=== PATIENT | female | born 1945 | race Caucasian/White ===

== ENCOUNTER → 2017-11-29 13:17 | Outpatient (CLI) | payer MEDICARE, SELFPAY ==
--- NOTE | 2017-11-29 13:28 | HPBI_ITS ---
MAMMOGRAPHY - UNILATERAL SCREENING: LEFT BREAST REASON FOR EXAM: Female, 72 years old. Routine annual screening examination (unilateral). PERTINENT HISTORY: Personal history of breast cancer. Prior right mastectomy and chemotherapy. TECHNIQUE: Digital unilateral breast cecy (3D mammographic acquisition) in the CC and MLO projections. 2-D mediolateral oblique (MLO) and craniocaudad (CC) views of both breasts were obtained. CAD: Full Field Digital Mammography with Computer Added Detection was performed. COMPARISON: Comparison is made with prior examination dated August 03, 2012. FINDINGS: Breast Composition: The breasts are almost entirely fatty. There are no dominant masses or suspicious calcifications. No other significant abnormalities are identified. There has been no significant change since the prior study. [facility] SCRN W/CAD IMPRESSION: Stable unilateral screening mammogram. Yearly follow-up mammogram recommended. (A) ASSESSMENT CATEGORY: BIRADS Category 1: Negative. A letter regarding these results will be sent to the patient by the facility within 30 days. Approximately 10% of breast cancers are not detected by mammography. A normal mammogram should not delay biopsy of a clinically suspicious abnormality. [id number] Electronically Signed: Compa Cherry MD at 15:10 EST Tel [phone], Service support ,
== END ==
PROVIDERS: Family Provider Internal Medicine; PCP Internal Medicine; Visit Provider Internal Medicine
DX: Z12.31 Encounter for screening mammogram for malignant neoplasm of breast (principal)
CPT/HCPCS: 77061; 77063; 77067; G0279

== ENCOUNTER → 2017-12-07 09:38 | Outpatient (CLI) | payer MEDICARE, SELFPAY ==
--- NOTE | 2017-12-07 09:39 | HPBD_ITS ---
STUDY: DUAL ENERGY X-RAY ABSORPTIOMETRY / DXA REASON FOR EXAM: Female, 72 years old. The patient is postmenopausal. Loss of height. History of breast cancer. TECHNIQUE: Bone Mineral Density (BMD) measurements of lumbar spine and bilateral hips were obtained. COMPARISON: Comparison is made with prior study dated August 03, 2012. FINDINGS: Lumbar Spine (L1-L4): g/cm2 (1.142) / T-score (-0.3) / Z-score (1.4) Findings are suggestive of normal bone density with a low fracture risk. Left Femur Total: g/cm2 (0.818) / T-score (-1.5) / Z-score (0.0) Left Femoral Neck: g/cm2 (0.704) / T-score (-2.4) / Z-score (-0.6) Right Femur Total: g/cm2 (0.885) / T-score (-1.0) / Z-score (0.6) Right Femoral Neck: g/cm2 (0.702) / T-score (-2.4) / Z-score (-0.7) The T-Scores on the most recent prior examination were: Lumbar Spine (L1-L4): There has been worsening of bone density since the previous examination. Left Femur Total: which represents a worsening of 1.1%. Right Femur Total: which represents a worsening of 1.8%. HPBD/Dexa Bone Density Study (HP) IMPRESSION: The patient is considered osteopenic as outlined below according to World Arturo Organization (WHO) criteria with a moderate fracture risk. There has been worsening of bone density since the previous examination. Reference Information: The T-score is the number of standard deviations above or below the standard which is normal for young adults at their peak bone mineral density. The World Health Organization (WHO) interprets the T-scores as follows: Above -1 Normal bone density Between -1 and -2.5 Osteopenia Equal to / or below -2.5 Osteoporosis As a practical clinical guideline, osteopenia may be graded as follows: Mild -1 through -1.5 Moderate -1.6 through -2.0 Severe -2.1 through -2.4 The Z-score is the number of standard deviations above or below age-matched controls. A Z-score of less than -1.5 would be considered abnormal. References: 1. NIH Osteoporosis and Related Bone Diseases http://www.osteo.org 2. International Society for Clinical Densitometry http://www.iscd.org 3. National Osteoporosis Foundation http://www.nof.org Electronically Signed: Compa Cherry MD at 11:19 EST Tel [phone], Service support ,
== END ==
PROVIDERS: Family Provider Internal Medicine; PCP Internal Medicine; Visit Provider Internal Medicine
DX: Z78.0 Asymptomatic menopausal state (principal)
CPT/HCPCS: 77080

== ENCOUNTER → 2019-10-01 16:26 | Outpatient (CLI) | payer MEDICARE, SELFPAY ==
[2018-11-21 10:13] VITALS: BMI 36.9
[2019-10-01 16:33] LABS: Mucous, Urine 0 SEEN /hpf (<or=2+); Red Blood Cells-Urine 0 SEEN /hpf (0-5); Squamous Epithelial Cells - UA 0 SEEN /hpf (5-10); White Blood Cells 0 SEEN /hpf (0-5)
[2019-10-01 16:48] LABS: Color, Urine Straw (Yellow); Glucose, Dipstick Normal (Normal); Ketone-Dipstick Negative (Negative); Leukocyte Esterase-Dipstick Negative /ul (Negative); Nitrite-Dipstick Negative (Negative); Occult Blood-Urine Negative /ul (Negative); Protein-Dipstick Negative (Negative); Urine Bilirubin Dipstick Negative (Negative); Urine Clarity Clear (Clear); Urine Urobilinogen Normal (Normal); Urine pH 6.5 (5.0 - 8.0)
[2019-10-01 16:54] LABS: Absolute Lymphocyte Count 1.99 X10^3/uL (0.83-4.51); Basophil# 0.02 X10^3/uL; Basophil% 0.4 % (0-1); Eosinophil# 0.18 X10^3/uL; Eosinophils% 3.2 % (0-5); Hematocrit 32.8 % (37-47); Lymphocyte # 1.99 X10^3/ul (4.0); Lymphocyte % 35.3 % (19-41); Mean Corp Hgb Conc 33.5 g/dL (32-36); Mean Corpuscular Hgb 32.4 pg (27.0-32.0); Mean Corpuscular Volume 96.5 fL (81-99); Monocyte# 0.45 X10^3/uL; NRBC Flagged by Analyzer 0 % (0-5); Neutrophil # 2.97 X10^3/uL (2.7-7.7); Neutrophil % 52.7 % (47-70); Platelet Count 161 K/mm3 (150-450); RBC Distribution Width CV 13.2 % (11.6-14.6); RBC Distribution Width SD 47.3 fl (35.1-43.9); White Blood Count 5.6 K/mm3 (4.4-11.0)
[2019-10-01 16:58] LABS: Bacteria RARE /hpf (None Seen)
[2019-10-01 17:03] LABS: ALB/GLOB Ratio 1.3 RATIO (0.9-2.4); AST(SGOT) 22 U/L (15-37); Alanine Aminotransfer ALT/SGPT 31 U/L (13-56); Albumin, Serum 3.8 g/dL (3.2-5.0); Alkaline Phosphatase 91 U/L (45-117); Anion Gap 8 (5-15); BUN 50 mg/dL (7-18); BUN/Creat Ratio 33.6 RATIO (10-20); Calcium,Total 9.2 mg/dL (8.5-10.1); Chloride 102 mmol/L (98-107); Creatinine, Serum 1.49 mg/dL (0.55-1.02); EST Glomerular Filtration Rate 36 mL/min (>60); Est Glom Filt Rate - Afr Amer 44 mL/min (>60); Globulin 2.9 g/dL (2.2-4.2); Glucose 87 mg/dL (74-106); Potassium 4.9 mmol/L (3.5-5.1); Protein, Total 6.7 g/dL (6.4-8.2); Sodium Level 137 mmol/L (136-145); Thyroid Stim Hormone (TSH) 3.46 uIU/mL (0.358-3.74)
[2019-10-01 17:15] LABS: Creatinine, Urine (random) < 13.00 mg/dL (NO RANGE EST.); Microalbumin,Random Urine < 5.0 mg/L (NO RANGE EST.)
[2019-10-02 10:07] LABS: Vitamin D,25 Hydroxy 60.1 ng/mL (29.95-100.01)
[2019-10-03 16:32] LABS: CHOLESTEROL TOTAL 131 mg/dL (100-199); HDL-C 46 mg/dL (>39); SMALL LDL-P 267 nmol/L (<=527); TRIGLYCERIDES 189 mg/dL (0-149)
[2019-10-03 20:37] LABS: LDL-C 47 mg/dL (0-99); LDL-P 535 nmol/L (<1000)
[2019-10-03 20:38] LABS: INSULIN RESISTANCE SCORE 59 (<=45); LDL SIZE 20.8 nm (>20.5)
== END ==
PROVIDERS: Family Provider Internal Medicine; PCP Internal Medicine; Referring Provider Internal Medicine; Visit Provider Internal Medicine
DX: E78.00 Pure hypercholesterolemia, unspecified (principal); E55.9 Vitamin D deficiency, unspecified; E11.43 Type 2 diabetes mellitus with diabetic autonomic (poly)neuropathy
CPT/HCPCS: 80053; 80061; 81001; 82043; 82306; 82570; 83704; 84443; 85025

== ENCOUNTER 2020-01-23 20:49 | Observation (INO) | payer MEDICARE, MEDICAID, SELFPAY ==
[2019-11-19 10:31] VITALS: BMI 33.8
[2020-01-23 20:51] VITALS: BP 161/73; PULSE 76; RESP 16; TEMP 36.7; O2SAT 100; BMI 34.9
--- NOTE | 2020-01-23 21:13 | ED.VISSUMM ---
- ER Visit Summary Date of Service: 01/23/20 Chief Complaint: Confusion History of Present Illness: The patient is a 74 F who presents with episode of confusion that was noticed today. Patient lives in assisted living and the nurse at the assisted living stated that the patient was not focusing well. Patient states that when her blood sugar drops below 120 she does not start acting confused. Patient's blood sugar was 89. Patient is feeling better at the present time. Patient denies any chest pain or shortness of breath. Patient denies any nausea or vomiting. Patient admits to subjective chills but denies any fevers. Physical Examination: Vital signs are stable. Patient is afebrile. Patient is in no acute distress. Oral mucosa is pink and moist. Neck is supple. Trachea is midline. There is no JVD noted. Heart was regular rate and rhythm. Lungs are clear and equal bilaterally. Abdomen is soft. Bowel sounds are normal. There is no tenderness. There is no rebound or guarding noted. Skin is warm dry. Cranial nerves II through XII are intact. There are no focal motor or sensory deficits noted. Extremities are intact. There is no edema. Test Results: CBC was within normal limits. Basic metabolic profile showed glucose of 64. Creatinine was 2.11 and BUN was 64. These were increased from previous results. Urinalysis does not show any evidence of urinary tract infection. Portable chest x-ray was obtained. There is no acute cardiopulmonary process. This was interpreted by the radiologist and reviewed by myself. Emergency Department Course and Treatment: Patient was given IV fluids here. Repeat BGT was obtained and was 30. Patient was given amp of D50. Patient was feeling better after this. Patient is agreeable to be admitted overnight for observation. Case was discussed with the hospitalist, Dr. Narayan. He will admit the patient to his service. Patient understood and was agreeable with the plan. All questions were answered. Disposition: Admit to hospital Impression: 1. Dehydration 2. Hypoglycemia This note was generated with [employer] software. It may contain incorrect words, spelling, and punctuation that were not noted in review of the chart prior to signing ED Disposition - Plan for ED Patient: Disposition: Acute Care [facility] Diagnosis: Dehydration, Hypoglycemia
--- NOTE | 2020-01-23 21:15 | RAD_ITS ---
HISTORY: CHILLS EXAM: XR Chest 1 View: COMPARISON: August 03, 2016 chest x-ray. A chest CT is available from August 04, 2016. FINDINGS: # of images incl. paperwork: 1 Lungs are clear. Heart is not enlarged. Thoracic spondylosis with a gentle rightward curvature to the thoracic spine and enthesophytes remains. Pulmonary vascularity is distinct. No effusions. RAD/Chest 1 View (Portable) IMPRESSION: No acute cardiopulmonary disease perceived. at 2153 Reported and signed by: Tyrell Bush MD Electronically Signed: Tyrell Bush MD at 21:52 EDT Tel , Service support ,
[2020-01-23 21:47] LABS: Absolute Neutrophil Count 2.9 X10^3/uL (2.0-7.7); Basophil# 0.02 X10^3/uL; Basophil% 0.3 % (0-1); Eosinophil# 0.21 X10^3/uL; Eosinophils% 3.4 % (0-5); Hematocrit 32.6 % (37-47); Hemoglobin 10.8 g/dL (12.0-15.0); Lymphocyte % 41.9 % (19-41); Mean Corp Hgb Conc 33.1 g/dL (32-36); Mean Corpuscular Volume 99.7 fL (81-99); Mean Platelet Vol. 10.4 fl (6.2-12.0); Monocyte# 0.42 X10^3/uL; Monocyte% 6.8 % (0-10); NRBC Flagged by Analyzer 0 % (0-5); Neutrophil # 2.94 X10^3/uL (2.7-7.7); Neutrophil % 47.3 % (47-70); Platelet Count 123 K/mm3 (150-450); RBC Distribution Width CV 12.1 % (11.6-14.6); RBC Distribution Width SD 43.9 fl (35.1-43.9); Red Blood Count 3.27 M/mm3 (4.2-5.4); White Blood Count 6.2 K/mm3 (4.4-11.0)
[2020-01-23 21:49] LABS: Bacteria 0 SEEN /hpf (None Seen); Mucous, Urine 0 SEEN /hpf (<or=2+); Red Blood Cells-Urine 0 SEEN /hpf (0-5)
[2020-01-23 21:59] LABS: Color, Urine Yellow (Yellow); Glucose, Dipstick Normal (Normal); Ketone-Dipstick Negative (Negative); Leukocyte Esterase-Dipstick 500 /ul (Negative); Nitrite-Dipstick Negative (Negative); Occult Blood-Urine Negative /ul (Negative); Protein-Dipstick Negative (Negative); Urine Bilirubin Dipstick Negative (Negative); Urine Clarity Clear (Clear); Urine Urobilinogen Normal (Normal)
[2020-01-23 22:00] LABS: ALB/GLOB Ratio 1.1 RATIO (0.9-2.4); AST(SGOT) 19 U/L (15-37); Alanine Aminotransfer ALT/SGPT 30 U/L (13-56); Albumin, Serum 3.4 g/dL (3.2-5.0); Alkaline Phosphatase 90 U/L (45-117); Anion Gap 7 (5-15); BUN 64 mg/dL (7-18); BUN/Creat Ratio 30.3 RATIO (10-20); Chloride 111 mmol/L (98-107); Creatinine, Serum 2.11 mg/dL (0.55-1.02); EST Glomerular Filtration Rate 24 mL/min (>60); Est Glom Filt Rate - Afr Amer 30 mL/min (>60); Estimated Creatinine Clearance 19.64 ml/min; Globulin 3.2 g/dL (2.2-4.2); Glucose 61 mg/dL (74-106); Potassium 4.3 mmol/L (3.5-5.1); Protein, Total 6.6 g/dL (6.4-8.2); Sodium Level 144 mmol/L (136-145)
[2020-01-23 22:07] LABS: Squamous Epithelial Cells - UA 0-5 SEEN /hpf (5-10); White Blood Cells 0-5 SEEN /hpf (0-5)
[2020-01-23] MEDS: 0.9% Normal Saline 1,000 ML 999 ML IV (22:55)
[2020-01-23] MEDS: Dextrose 50%-Water 25 GM/50 ML DISP.SYRIN IV (23:01)
--- NOTE | 2020-01-23 23:02 | ED.RN ---
CAME IN TO TAKE BLOOD GLUCOSE TEST, PT LETHARGIC AND SLURRING WORDS. RESULT 30, MD AWARE AND VERBAL ORDER FOR 50% DEXTROSE, 1 AMP. ATTEMPTED TO GIVE MEDICATION VIA LEFT AC, IV INFILTRATED. NEW IV STARTED IN LEFT UPPER ARM. MEDICATION WAS GIVEN AND PT IMMEDIATELY BECAME MORE ALERT AND ORIENTED.
[2020-01-23 23:07] VITALS: BP 125/59; PULSE 79; RESP 16; O2SAT 99
--- NOTE | 2020-01-23 23:13 | PCM.HP.STD ---
Problem List (1) Acute encephalopathy Status: Acute (2) Type 2 diabetes mellitus without complications Status: Chronic (3) Pulmonary emboli Status: Chronic Qualifiers: Pulmonary embolism type: other Chronicity: unspecified Acute cor pulmonale presence: without acute cor pulmonale Qualified Code(s): I26.99 - Other pulmonary embolism without acute cor pulmonale (4) HTN (hypertension) Status: Chronic (5) Acute non-ST elevation myocardial infarction (NSTEMI) Status: Chronic (6) Hx of deep venous thrombosis Status: Chronic (7) History of DVT (deep vein thrombosis) Status: Chronic (8) Chronic kidney disease, stage 3 Status: Chronic (9) History of breast cancer Status: Chronic Comment: Status post right mastectomy and chemotherapy, in remission. (10) transient hypoxia Status: Acute (11) Shortness of breath Status: Inactive (12) Left sided chest pain Status: Inactive (13) Type 2 diabetes mellitus Status: Chronic (14) Hypertension Status: Chronic Qualifiers: Hypertension type: essential hypertension Qualified Code(s): I10 - Essential (primary) hypertension History of Present Illness Date of Admission: 01/23/20 Chief Complaint: Confusion, sent from SNF The patient is a 74 year old F with multiple comorbidities as mentioned above was sent from [facility] for confusion that was noticed on day of admission. As per the nursing staff in assisted living, patient was confused, inattentive, not focused. Her blood sugar was found 89 mg/dL and when her blood sugar drops below 120, she starts acting confused. Denies fever or chills. No cough or shortness of breath. In ED, vital signs are stable. [] Basic labs in ER shows BUN/creatinine 64/2.11, H&H 10.8/32, platelet count 223. The previous BUN/creatinine was 50/1.49 in September 2019. Chest x-ray no acute cardiopulmonary abnormality. Past Medical History Past Medical History (Chronic Problems): Chronic Problems (Last Reviewed 11/19/19 @ 10:51 by JOSEP Norris) Type 2 diabetes mellitus without complications (Chronic) Pulmonary emboli (Chronic) HTN (hypertension) (Chronic) Acute non-ST elevation myocardial infarction (NSTEMI) (Chronic) Hx of deep venous thrombosis (Chronic) History of DVT (deep vein thrombosis) (Chronic) Chronic kidney disease, stage 3 (Chronic) History of breast cancer (Chronic) Status post right mastectomy and chemotherapy, in remission. Type 2 diabetes mellitus (Chronic) Hypertension (Chronic) Medical History: Medical History (Last Reviewed 11/19/19 @ 10:51 by JOSEP Norris) Type 2 diabetes mellitus without complications (Chronic) E11.9 Pulmonary emboli (Chronic) I26.99 HTN (hypertension) (Chronic) I10 Acute non-ST elevation myocardial infarction (NSTEMI) (Chronic) I21.4 Hx of deep venous thrombosis (Chronic) Z86.718 acute chronic kidney diseae stage 3 Allergies acetaminophen [From Darvocet-N] Allergy (Verified 11/19/19 10:31) Rash meperidine HCl [From Demerol] Allergy (Verified 11/19/19 10:31) Rash Penicillins Allergy (Verified 11/19/19 10:31) Rash propoxyphene HCl [From Darvon] Allergy (Verified 11/19/19 10:31) Rash propoxyphene napsylate [From Darvocet-N] Allergy (Verified 11/19/19 10:31) Rash Home Medications: Ambulatory Orders Medication Instructions Recorded Aspirin [Aspirin, Baby] 81 mg PO DAILY@0800 08/03/16 Insulin Detemir [Levemir FlexPen] 20 units SC BREAKFAST 08/03/16 Insulin Detemir [Levemir FlexPen] 20 units SC QHS 08/03/16 Metoprolol(XL)Succ [Toprol Xl 50 mg PO DAILY 08/03/16 (Beta Birdie)] Multivitamin [Daily Multiple 1 ea PO DAILY 08/03/16 Vitamin] Omeprazole [Prilosec] 20 mg PO DAILY 08/03/16 Apixaban [Eliquis] 5 mg PO BID #90 tab 08/05/16 Atorvastatin Calcium [Lipitor] 40 mg PO QHS #30 tab 08/05/16 insulin aspart U-100 100 unit/mL See Rx Instructions SC TIDCM 10/05/17 (3 mL) subcutaneous pen metformin 500 mg tablet 500 mg PO BID 10/08/17 gabapentin 100 mg capsule 300 mg PO TID 30 Days #150 11/10/17 furosemide 20 mg tablet 20 mg PO DAILY 11/21/18 lisinopril 10 mg tablet 10 mg PO DAILY 11/21/18 Cholecalciferol (Vitamin D3) 2,000 unit PO DAILY 01/23/20 [Vitamin D3] Ofloxacin 0.3% [Floxin 0.3% Otic] 1 drp LEFT EYE 4X/DAY 01/23/20 Surgical History: Surgical History (Last Reviewed 11/19/19 @ 10:51 by JOSEP Norris) H/O right mastectomy Z98.890, Z90.11 Surgical History: mastectomy Psychiatric History: No pertinent psych hx HEAT AND FROST INSULATOR History: No pertinent HEAT AND FROST INSULATOR history Smoking Status: Never smoker - *Family History Maternal History Items: No pertinent history Paternal History Items: No pertinent history Review of Systems Constitutional: Denies: Chills, Fever, Weight Change HEENT: Denies: Head Aches, Sinus Congestion, Sinus Drainage Cardiovascular: Denies: Chest Pain, Palpitations Respiratory: Denies: Cough, Shortness of breath at rest, Sputum production Gastrointestinal: Denies: Abdominal Pain, Nausea, Vomiting Genitourinary: Reports: Incontinence - chronic. Denies: Dysuria, Frequency, Urgency Musculoskeletal: Denies: Joint Pain, Joint Tenderness Skin: Denies: Rash, Wounds Neurological: Reports: Balance problems. Denies: Focal weakness, Numbness, Tingling Psychiatric: Denies: Anxiety, Depression, Homicidal Ideations, Suicidal Ideations Hematologic/ Lymphatic: Denies: Easy Bruising, Easy Bleeding VTE Information - Inpt Only VTE Present on Admission: No VTE Mechan Device Prophylaxis: None VTE Pharm Prophylaxis ordered?: Yes Patient Problems: Active and Suspected Problems (Last Reviewed 11/19/19 @ 10:51 by JOSEP Norris) Acute encephalopathy (Acute) - Physical Exam Vitals/I&O's: Vital Signs Temp Pulse Resp BP Pulse Ox 98.1 F 79 16 125/59 H 99 01/23/20 20:51 01/23/20 23:07 01/23/20 23:07 01/23/20 23:07 01/23/20 23:07 Oxygen Delivery Method Room Air Weight: 197 lb 5.019 oz Body Mass Index (BMI) 34.9 Finger Stick Blood Glucose 30 General: Oriented x3, Cooperative, Lethargic HEENT: Atraumatic, PERRLA, EOMI, Normocephalic Oral: No Gingival or Mucosal Lesions/ Ulcerations, Dry Mucosa Neck: Supple, No JVD, Negative Carotid Bruits Lungs: Clear to auscultation, Normal air movement, No rhonchi, No wheeze, No rales Cardiovascular: Regular rate, Regular Rhythm, Normal S1, Normal S2, No murmurs Abdomen: Bowel Sounds Present, Soft, Non Tender, Non-Distended Extremities: No edema, Capillary Refill Less than 3 Seconds Skin: No rashes, No breakdown Musculoskeletal: No Tenderness to Palpation of Joints or Extremities Neurological: Cranial nerves II-XII grossly intact, Deep Tendon Reflexes 2+/4 and Symmetrical, Neuro grossly intact Psych/Mental Status: Normal Affect, Appropriate Laboratory Results 01/23/20 21:35: WBC 6.2, RBC 3.27 L, Hgb 10.8 L, Hct 32.6 L, MCV 99.7 H, MCH 33.0 H, MCHC 33.1, RDW Std Deviation 43.9, RDW Coeff of Joelle 12.1, Plt Count 123 L, MPV 10.4, Immature Gran % (Auto) 0.300, Neut % (Auto) 47.3, Lymph % (Auto) 41.9 H, [place] % (Auto) 6.8, Eos % (Auto) 3.4, Baso % (Auto) 0.3, Absolute Neuts (auto) 2.9, Absolute Lymphs (auto) 2.60, Nucleated RBC % 0 01/23/20 21:35: Sodium 144, Potassium 4.3, Chloride 111 H, Carbon Dioxide 26.0, Anion Gap 7, BUN 64 H, Creatinine 2.11 H, Estim Creat Clear Calc 19.64, Est GFR (MDRD) Af Amer 30 L, Est GFR (MDRD) Non-Af 24 L, BUN/Creatinine Ratio 30.3 H, Glucose 61 L, Calcium 9.0, Total Bilirubin 0.20, AST 19, ALT 30, Alkaline Phosphatase 90, Total Protein 6.6, Albumin 3.4, Globulin 3.2, Albumin/Globulin Ratio 1.1 01/23/20 21:40: Urine Color Yellow, Urine Clarity Clear, Urine pH 5.0, Ur Specific [place] 1.010, Urine Protein Negative, Urine Glucose (UA) Normal, Urine Ketones Negative, Urine Occult Blood Negative, Urine Nitrite Negative, Urine Bilirubin Negative, Urine Urobilinogen Normal, Ur Leukocyte Esterase 500 H, Urine RBC 0 SEEN, Urine WBC 0-5 SEEN, Ur Squamous Epith Cells 0-5 SEEN, Urine Bacteria 0 SEEN, Urine Mucus 0 SEEN Current Medications Sodium Chloride () 1,000 mls @ 1,000 mls/hr IV .Q1H ONE Stop: 01/23/20 23:30 Last Admin: 01/23/20 22:55 Dose: 999 mls/hr Documented by: Assessment/Plan All Active Problems (Last Reviewed 11/19/19 @ 10:51 by JOSEP Norris) Acute encephalopathy (Acute) transient hypoxia (Acute) The patient is a 74 year old F with multiple comorbidities as mentioned above was sent from [facility] for confusion that was noticed on day of admission. As per the nursing staff in assisted living, patient was confused, inattentive, not focused. Accu-Cheks in ER is 30 and in BMP 60 mg deciliter. In ED, vital signs are stable. [] Basic labs in ER shows, H&H 10.8/32, platelet count 223. Chest x-ray no acute cardiopulmonary abnormality. 1. Acute mild encephalopathy probably secondary to hypoglycemia/metabolic encephalopathy: Patient still feels mild groggy/lethargic. Patient is being admitted for observation on MedSurg floor. Treat underlying disorder as mentioned below. 2. Diabetes mellitus type 2 with hypoglycemia: Glucose in BMP 61. Glucose was 30 in Accu-Cheks. Continue IV fluid D5 half NS at 100 mill per hour. Monitor Accu-Cheks every 2 hours until glucose is more than 90 mg and then every 4 hour. Avoid oral hypoglycemic agents and insulin. 3. Acute kidney injury on CKD stage III can lead to dehydration/prerenal: BUN/creatinine 64/2.11. The previous BUN/creatinine was 50/1.49 in September 2019. We fluid as mentioned above. Monitor intake and output, electrolytes and kidney function. 4. Breast cancer status post right mastectomy and chemotherapy: Stable 5. Other comorbidities include PE/DVT, hypertension, chronic degenerative joint disease: Multiple comorbidities complicates the present care and expect difficult and delay recovery Advance directive: Patient has advanced directive in penitentiary note. Patient is DNR CC as per penitentiary paper. When asked directly about different code options including full code, DNR CC arrest and DNR CC, patient wants to keep DNR CC. Patient does not want artificial life support including intubation, tube feed, ventilator and/chest compression. Total time spent in axam-fi-oijc encounter in discussion of advanced directive 16 minutes. Laboratory Results 01/23/20 21:35: WBC 6.2, RBC 3.27 L, Hgb 10.8 L, Hct 32.6 L, MCV 99.7 H, MCH 33.0 H, MCHC 33.1, RDW Std Deviation 43.9, RDW Coeff of Joelle 12.1, Plt Count 123 L, MPV 10.4, Immature Gran % (Auto) 0.300, Neut % (Auto) 47.3, Lymph % (Auto) 41.9 H, [place] % (Auto) 6.8, Eos % (Auto) 3.4, Baso % (Auto) 0.3, Absolute Neuts (auto) 2.9, Absolute Lymphs (auto) 2.60, Nucleated RBC % 0 01/23/20 21:35: Sodium 144, Potassium 4.3, Chloride 111 H, Carbon Dioxide 26.0, Anion Gap 7, BUN 64 H, Creatinine 2.11 H, Estim Creat Clear Calc 19.64, Est GFR (MDRD) Af Amer 30 L, Est GFR (MDRD) Non-Af 24 L, BUN/Creatinine Ratio 30.3 H, Glucose 61 L, Calcium 9.0, Total Bilirubin 0.20, AST 19, ALT 30, Alkaline Phosphatase 90, Total Protein 6.6, Albumin 3.4, Globulin 3.2, Albumin/Globulin Ratio 1.1 01/23/20 21:40: Urine Color Yellow, Urine Clarity Clear, Urine pH 5.0, Ur Specific [place] 1.010, Urine Protein Negative, Urine Glucose (UA) Normal, Urine Ketones Negative, Urine Occult Blood Negative, Urine Nitrite Negative, Urine Bilirubin Negative, Urine Urobilinogen Normal, Ur Leukocyte Esterase 500 H, Urine RBC 0 SEEN, Urine WBC 0-5 SEEN, Ur Squamous Epith Cells 0-5 SEEN, Urine Bacteria 0 SEEN, Urine Mucus 0 SEEN 01/23/20 22:49: POC Glucose 30 L* Clinical Impression(s) from Imaging Studies Chest X-Ray 01/23/20 21:15 IMPRESSION: No acute cardiopulmonary disease perceived. OBSV E&M: [id number] Initial observation care L3 Procedures: [id number] Advncd Care Plan 30 Min
[2020-01-23 23:16] LABS: Bedside Glucose 30 mg/dL (70-110)
[2020-01-23 23:45] LABS: Bedside Glucose 126 mg/dL (70-110)
[2020-01-23 23:59] VITALS: BP 144/62; PULSE 72; RESP 16; TEMP 36.8; O2SAT 97
[2020-01-24] VITALS (7 sets, daily range): BP systolic 91–140; BP diastolic 49–66; PULSE 57–85; RESP 16–18; TEMP 36.4–36.8; O2SAT 97–100; BMI 32.8
[2020-01-24] MEDS: Dextrose 5%/0.9% NaCl 1,000 ML 100 ML IV (01:05)
[2020-01-24 01:41] LABS: Bedside Glucose 96 mg/dL (70-110)
[2020-01-24] MEDS: Gabapentin 300 MG Capsule PO ×3 (05:29→22:02)
[2020-01-24 05:36] LABS: Bedside Glucose 168 mg/dL (70-110)
[2020-01-24 06:30] LABS: Anion Gap 7 (5-15); BUN 58 mg/dL (7-18); Calcium,Total 8.2 mg/dL (8.5-10.1); Chloride 115 mmol/L (98-107); Creatinine, Serum 1.81 mg/dL (0.55-1.02); EST Glomerular Filtration Rate 29 mL/min (>60); Est Glom Filt Rate - Afr Amer 35 mL/min (>60); Glucose 185 mg/dL (74-106); Potassium 4.9 mmol/L (3.5-5.1); Sodium Level 145 mmol/L (136-145)
[2020-01-24] MEDS: Metoprolol(XL)Succ 50 MG Tablet PO (07:59)
[2020-01-24] MEDS: Pantoprazole Sodium 20 MG Tablet PO (07:59)
[2020-01-24] MEDS: Multivitamins,Therapeutic Tablet 1 TABLET PO (07:59)
[2020-01-24] MEDS: Aspirin 81 MG TAB.CHEW PO (07:59)
[2020-01-24] MEDS: APIXABAN 5 MG TABLET PO ×2 (08:00→22:02)
[2020-01-24 10:31] LABS: Bedside Glucose 144 mg/dL (70-110)
--- NOTE | 2020-01-24 10:51 | CASEMGMT ---
Social Work Note Pt is listed as being from [facility]. SW in to speak with pt. SW introduced self and role at [facility]. Pt is alert and orientated x3. Pt confirms that she came from [facility] and she lives there with her Ronnie and they have lived there for 5-6 years. Pt state she was previously independent with ADLs. Pt denied any DME for herself, states her Ronnie just got a new rollator. Pt confirms that her HCPOA is Yana Severino. Pt states that she will call tomorrow to see if anyone is available to transport her back to [facility]. SW faxed updated clinicals to [facility]. Per physician, pt will likley discharge back to [facility] tomorrow. 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
--- NOTE | 2020-01-24 12:51 | PN_ITS ---
Patient Problems: Active and Suspected Problems (Last Reviewed 11/19/19 @ 10:51 by JOSEP Norris) Acute encephalopathy (Acute) Dehydration (Acute) Hypoglycemia (Acute) Subjective: Patient seen and examined. She was admitted with a complaint of acute metabolic encephalopathy due to hypoglycemia. Blood sugar was 89 and per skilled nursing staff, when her blood pressure dropped to below 120, started acting confused. Review of signs otherwise negative. Patient seen this morning. She is awake and alert and had no complaints. 12 point review of systems otherwise negative. Labs and vitals reviewed. Blood pressure is down to 91/53 this morning and creatinine is down to 1.81 from 2.11 on admission. Vitals/I&O's: Vital Signs Temp Pulse Resp BP Pulse Ox 98.0 F 57 L 18 91/53 L 99 01/24/20 10:18 01/24/20 10:18 01/24/20 10:18 01/24/20 10:18 01/24/20 10:18 Oxygen Delivery Method Room Air Weight: 191 lb 5.78 oz Body Mass Index (BMI) 32.8 Finger Stick Blood Glucose 126 Intake and Output for Last 24 Hours 01/22/20 01/23/20 01/24/20 23:59 23:59 23:59 Intake Total 2366.67 / 2366.67 Output Total 1400 / 1400 Balance 966.67 / 966.67 General: Alert, Oriented x3, Cooperative, No apparent distress HEENT: Atraumatic, PERRLA, EOMI, Normocephalic Oral: Dry Mucosa Neck: Supple, No JVD, Negative Carotid Bruits Lungs: Clear to auscultation, Normal air movement, No rhonchi, No wheeze, No rales Cardiovascular: Regular rate, Regular Rhythm, Normal S1, Normal S2, No murmurs Abdomen: Bowel Sounds Present, Soft, Non Tender, Non-Distended, No Hepato- splenomegaly Extremities: No clubbing, No cyanosis, No edema, Capillary Refill Less than 3 Seconds Skin: No rashes, No breakdown Musculoskeletal: No Tenderness to Palpation of Joints or Extremities Lymphatic: No Cervical, Supraclavicular, or Inguinal Adenopathy Neurological: Cranial nerves II-XII grossly intact, Neuro grossly intact, Motor Exam 5/5 strength throughout Psych/Mental Status: Normal Affect, Appropriate, Alert and oriented to time, place, person, mood and affect Laboratory Results 01/23/20 21:35: WBC 6.2, RBC 3.27 L, Hgb 10.8 L, Hct 32.6 L, MCV 99.7 H, MCH 33.0 H, MCHC 33.1, RDW Std Deviation 43.9, RDW Coeff of Joelle 12.1, Plt Count 123 L, MPV 10.4, Immature Gran % (Auto) 0.300, Neut % (Auto) 47.3, Lymph % (Auto) 41.9 H, Vernon % (Auto) 6.8, Eos % (Auto) 3.4, Baso % (Auto) 0.3, Absolute Neuts (auto) 2.9, Absolute Lymphs (auto) 2.60, Nucleated RBC % 0 01/23/20 21:35: Sodium 144, Potassium 4.3, Chloride 111 H, Carbon Dioxide 26.0, Anion Gap 7, BUN 64 H, Creatinine 2.11 H, Estim Creat Clear Calc 19.64, Est GFR (MDRD) Af Amer 30 L, Est GFR (MDRD) Non-Af 24 L, BUN/Creatinine Ratio 30.3 H, Glucose 61 L, Calcium 9.0, Total Bilirubin 0.20, AST 19, ALT 30, Alkaline Phosphatase 90, Total Protein 6.6, Albumin 3.4, Globulin 3.2, Albumin/Globulin Ratio 1.1 01/23/20 21:40: Urine Color Yellow, Urine Clarity Clear, Urine pH 5.0, Ur Specific Dunlap 1.010, Urine Protein Negative, Urine Glucose (UA) Normal, Urine Ketones Negative, Urine Occult Blood Negative, Urine Nitrite Negative, Urine Bilirubin Negative, Urine Urobilinogen Normal, Ur Leukocyte Esterase 500 H, Urine RBC 0 SEEN, Urine WBC 0-5 SEEN, Ur Squamous Epith Cells 0-5 SEEN, Urine Bacteria 0 SEEN, Urine Mucus 0 SEEN 01/23/20 22:49: POC Glucose 30 L* 01/23/20 23:35: POC Glucose 126 H 01/24/20 01:03: POC Glucose 96 01/24/20 05:19: POC Glucose 168 H 01/24/20 06:00: Sodium 145, Potassium 4.9, Chloride 115 H, Carbon Dioxide 23.0, Anion Gap 7, BUN 58 H, Creatinine 1.81 H, Estim Creat Clear Calc 23.90, Est GFR (MDRD) Af Amer 35 L, Est GFR (MDRD) Non-Af 29 L, BUN/Creatinine Ratio 32.0 H, Glucose 185 H, Calcium 8.2 L 01/24/20 10:13: POC Glucose 144 H Diagnostic Data Chest X-Ray 01/23/20 21:15 IMPRESSION: No acute cardiopulmonary disease perceived. at 2153 Reported and signed by: Tyrell Bush MD Electronically Signed: Tyrell Bush MD at 21:52 EDT Tel , Service support , Current Medications Al Hydroxide/Mg Hydroxide (Mylanta Ii) 30 ml PO Q6H PRN PRN PRN Reason: Gastric Burning Apixaban (Eliquis) 5 mg PO BID [facility] Last Admin: 01/24/20 08:00 Dose: 5 mg Documented by: Aspirin (Aspirin, Baby) 81 mg PO DAILY@0800 [facility] Last Admin: 01/24/20 07:59 Dose: 81 mg Documented by: Atorvastatin Calcium (Lipitor) 40 mg PO QHS [facility] Cholecalciferol (Vitamin D (25mcg)) 2,000 unit PO DAILY [facility] Last Admin: 01/24/20 08:00 Dose: 2,000 unit Documented by: Dextrose (D50w Syringe) 0 gm IV X1 PRN; Protocol PRN Reason: Hypoglycemia Gabapentin (Neurontin) 300 mg PO TID [facility] Last Admin: 01/24/20 05:29 Dose: 300 mg Documented by: Glucagon () 1 mg IM .X1 PRN PRN Reason: Hypoglycemia Sodium Chloride () 250 mls @ 15 mls/hr IV .[id number] PRN PRN Reason: Saline Flush Metoprolol Succinate (Toprol Xl (Beta Birdie)) 50 mg PO DAILY [facility] Last Admin: 01/24/20 07:59 Dose: 50 mg Documented by: Morphine Sulfate () 2 mg IV Q3H PRN PRN PRN Reason: Pain Score 6-10/10 Multivitamins (Multivitamin) 1 tablet PO DAILY@0800 [facility] Last Admin: 01/24/20 07:59 Dose: 1 tablet Documented by: Nitroglycerin (Nitrostat) 0.4 mg SUBLINGUAL Q5M PRN PRN Reason: CARDIAC/CHEST PAIN Non-Formulary Medication (Ofloxacin 0.3% [Floxin 0.3% Otic]) 1 drp LEFT EYE 4X/DAY [facility] Oxycodone HCl (Oxyir) 5 mg PO Q4H PRN PRN PRN Reason: Pain Score 4-5/10 Pantoprazole Sodium (Protonix) 20 mg PO DAILY [facility] Last Admin: 01/24/20 07:59 Dose: 20 mg Documented by: Prochlorperazine Edisylate (Compazine Iv) 5 mg IV Q4H PRN PRN PRN Reason: Breakthrough nausea/vomiting Senna/Docusate Sodium (Senokot-S, Martha-Colace) 2 tablet PO BID PRN PRN PRN Reason: Constipation Sodium Chloride () 10 - 40 ml IV UD PRN PRN Reason: SALINE FLUSH STROKE Vital Signs/Narrative: Vital Signs Temp Pulse Resp BP Pulse Ox 01/24/20 10:18 98.0 F 57 L 18 91/53 L 99 Medical Necessity - Tobacco Use Smoking Status: Never smoker Assessment/Plan All Active Problems (Last Reviewed 11/19/19 @ 10:51 by JOSEP Norris) Acute encephalopathy (Acute) Dehydration (Acute) Hypoglycemia (Acute) transient hypoxia (Acute) 1. Acute metabolic encephalopathy due to hypoglycemia. * Hypoglycemia has now resolved. Patient feels well. * Blood glucose was as low as 61 in the BMP. * Blood sugar this morning is 144. * DC D5 normal saline and encourage patient to eat orally so we can trend his sugar and adjust insulin dose as needed. * She is on Lantus 30 units twice daily at home. Will cut down to 20 units twice daily. * Insulin sliding scale. Accu-Cheks AC at bedtime. * 2. MELODY on CKD stage III: * Creatinine was 2.11 on admission and is now down to 1.81. * Baseline is around 1.49. * Continue gentle hydration with IV fluids. * 3. Hypertension: BP today is down to 90s systolic. will hold home metoprolol 4. History of breast cancer status post right mastectomy and chemotherapy: Stable. 5. 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 6. GERD: On pantoprazole. DVT prophylaxis: not indicated as patient is on eliquis. OBSV E&M: 03582 Subsequent observation care L2
[2020-01-24 14:46] LABS: Bedside Glucose 165 mg/dL (70-110)
[2020-01-24 18:31] LABS: Bedside Glucose 172 mg/dL (70-110)
[2020-01-24] MEDS: Atorvastatin Calcium 40 MG Tablet PO (22:02)
[2020-01-24 22:10] LABS: Bedside Glucose 159 mg/dL (70-110)
[2020-01-25 02:08] VITALS: BP 118/52; PULSE 85; RESP 18; TEMP 37; O2SAT 99
[2020-01-25 02:11] LABS: Bedside Glucose 195 mg/dL (70-110)
[2020-01-25] MEDS: Gabapentin 300 MG Capsule PO (06:26)
[2020-01-25 06:31] LABS: Bedside Glucose 142 mg/dL (70-110)
[2020-01-25 08:40] LABS: Anion Gap 6 (5-15); BUN 48 mg/dL (7-18); BUN/Creat Ratio 28.2 RATIO (10-20); Chloride 117 mmol/L (98-107); EST Glomerular Filtration Rate 31 mL/min (>60); Est Glom Filt Rate - Afr Amer 38 mL/min (>60); Estimated Creatinine Clearance 25.45 ml/min; Glucose 131 mg/dL (74-106); Potassium 4.7 mmol/L (3.5-5.1); Sodium Level 148 mmol/L (136-145)
[2020-01-25] MEDS: Aspirin 81 MG TAB.CHEW PO (08:45)
[2020-01-25] MEDS: Multivitamins,Therapeutic Tablet 1 TABLET PO (08:45)
[2020-01-25 08:50] VITALS: BP 131/58; PULSE 68; RESP 18; TEMP 37.1; O2SAT 98
--- NOTE | 2020-01-25 09:48 | CASEMGMT ---
JACKIE RIVAS completed PANTOJA for with patient. PANTOJA form explained to patient, patient had no questions or concerns at this time. Patient signed PANTOJA form and filed in chart. Copy of signed PANTOJA form given to patient. Patient had no further questions or concerns at this time.
--- NOTE | 2020-01-25 09:50 | DCINST_ITS ---
- Discharge Diagnoses Current Active Problems: Current Active and Chronic Problems (Last Reviewed 11/19/19 @ 10:51 by JOSEP Norris) Acute encephalopathy (Acute) Dehydration (Acute) Hypoglycemia (Acute) You will use the following diet at home:: Cardiac Your food should be the consistency of: Regular Your liquids should be the consistency of: Regular/Thin Discharge Activity: Return to Normal Activity Weight Bearing Status: Weight bearing as tolerated Call your doctor if you observe: Fever of 101 or Higher, Shortness of breath, Dizziness, Fainting spells Instructions: ED Blood Sugar Low Non Diabetic Additional Instructions: lantus dose decreased to 20IU sc bid. check blood sugars before and after meals Allergies/Adverse Reactions: Allergies acetaminophen [From Darvocet-N] Allergy (Verified 11/19/19 10:31) Rash meperidine HCl [From Demerol] Allergy (Verified 11/19/19 10:31) Rash Penicillins Allergy (Verified 11/19/19 10:31) Rash propoxyphene HCl [From Darvon] Allergy (Verified 11/19/19 10:31) Rash propoxyphene napsylate [From Darvocet-N] Allergy (Verified 11/19/19 10:31) Rash Medications to take at Discharge Aspirin [Aspirin, Baby] 81 mg PO DAILY@0800 08/03/16 Metoprolol(XL)Succ [Toprol Xl (Beta Birdie)] 50 mg PO DAILY 08/03/16 Multivitamin [Daily Multiple Vitamin] 1 ea PO DAILY 08/03/16 Omeprazole [Prilosec] 20 mg PO DAILY 08/03/16 Apixaban [Eliquis] 5 mg PO BID #90 tab 08/05/16 Atorvastatin Calcium [Lipitor] 40 mg PO QHS #30 tab 08/05/16 metformin 500 mg tablet 500 mg PO BID 10/08/17 gabapentin 100 mg capsule 300 mg PO TID 30 Days #150 11/10/17 furosemide 20 mg tablet 20 mg PO DAILY 11/21/18 lisinopril 10 mg tablet 10 mg PO BID 11/21/18 Cholecalciferol (Vitamin D3) [Vitamin D3] 4,000 unit PO DAILY 01/23/20 Ofloxacin 0.3% [Floxin 0.3% Otic] 1 drp LEFT EYE 4X/DAY 01/23/20 Insulin Lispro [Humalog KwikPen] See Protocol SQ TIDCM 01/24/20 Insulin Glargine [Lantus SoloStar Pen] 20 units SUBCUT BID #10 pen 01/25/20 The following prescriptions were given: Insulin Glargine [Lantus SoloStar Pen] 20 units SUBCUT BID #10 pen Prescription Printed Primary Care Physician: Ava Wilson DO [Primary Care Provider] - Please follow up with your Primary Care Physician in: one week Test Results: Test results from this visit will be discussed in further detail at your follow- up appointment, if applicable. Proposed Discharge Date: 01/25/20
--- NOTE | 2020-01-25 10:01 | DS.PCM_ITS ---
Discharge Date and Diagnosis Date of Admission: 01/23/20 Date of Discharge: 01/25/20 - Primary Discharge Diagnosis Active and Suspected Problems (Last Reviewed 11/19/19 @ 10:51 by JOSEP Norris) Acute encephalopathy (Acute) Dehydration (Acute) Hypoglycemia (Acute) - Secondary Discharge Diagnosis Chronic Problems (Last Reviewed 11/19/19 @ 10:51 by JOSEP Norris) Type 2 diabetes mellitus without complications (Chronic) Pulmonary emboli (Chronic) HTN (hypertension) (Chronic) Acute non-ST elevation myocardial infarction (NSTEMI) (Chronic) Hx of deep venous thrombosis (Chronic) History of DVT (deep vein thrombosis) (Chronic) Chronic kidney disease, stage 3 (Chronic) History of breast cancer (Chronic) Status post right mastectomy and chemotherapy, in remission. Type 2 diabetes mellitus (Chronic) Hypertension (Chronic) Hospital Course and Treatment Imaging Results: Diagnostic Data Chest X-Ray 01/23/20 21:15 IMPRESSION: No acute cardiopulmonary disease perceived. at 2153 Reported and signed by: Tyrell Bush MD Electronically Signed: Tyrell Bush MD at 21:52 EDT Tel , Service support , Operations: None Procedures: None Summary of Care Provided: The patient is a 74 year old F with an extensive past medical history as outlined was admitted through the ED on 01/23/2020 with a complaint of confusion. Patient was noted to be confusion at [facility] and her blood sugar was found to be 89. According to the [facility] staff, patient always became confused when her blood sugar dropped to below 120. She had had no associated fever chills, nausea vomiting or diarrhea decreased appetite and no cough or shortness of breath. Blood sugar was down to 30 in the ED on admission. She was admitted and managed for acute metabolic encephalopathy due to hypoglycemia. Labs showed no evidence of infection and UA was negative for any UTI. She was successfully resuscitated with D5 normal saline. She also had MELODY with CKD stage III on admission with creatinine of 2.11 with a base of 1.49. Patient's confusion resolved with administration of D5 normal saline and blood sugar stabilized. Lantus was cut down to 20 units twice daily from 30 units twice daily. Creatinine trended down to 1.7 at time of discharge. Patient remained stable and was discharged back to her [facility] on 01/25/2020. As mentioned Lantus works cut down to 20 units twice daily. She is follow-up with her primary care doctor within 1 week and her blood sugars to be checked regularly before and after meals. Patient seen and examined prior to discharge. She was very comfortable and had no complaints. Review systems otherwise negative. Labs and vitals reviewed. Home medication reviewed and reconciled. o/e: Vital Signs Height 5 ft 4 in Weight: 191 lb 5.78 oz Weight in Pounds 191.4 lbs Pulse Ox 98 Temperature 98.8 F Pulse Rate 82 Respiratory Rate 18 Blood Pressure 131/58 Blood Pressure Position Semi-Fowlers [] General: Alert, Oriented x3, Cooperative, No apparent distress HEENT: Atraumatic, PERRLA, EOMI, Normocephalic Oral: Dry Mucosa Neck: Supple, No JVD, Negative Carotid Bruits Lungs: Clear to auscultation, Normal air movement, No rhonchi, No wheeze, No rales Cardiovascular: Regular rate, Regular Rhythm, Normal S1, Normal S2, No murmurs Abdomen: Bowel Sounds Present, Soft, Non Tender, Non-Distended, No Hepato- splenomegaly Extremities: No clubbing, No cyanosis, No edema, Capillary Refill Less than 3 Seconds Skin: No rashes, No breakdown Musculoskeletal: No Tenderness to Palpation of Joints or Extremities Lymphatic: No Cervical, Supraclavicular, or Inguinal Adenopathy Neurological: Cranial nerves II-XII grossly intact, Neuro grossly intact, Motor Exam 5/5 strength Psych/Mental Status: Normal Affect, Appropriate, Alert and oriented to time, place, person, mood and affect Plan is for discharge back to [facility] today. - Physical Exam Vitals/I&O's: Vital Signs Temp Pulse Resp BP Pulse Ox 98.8 F 68 18 131/58 H 98 01/25/20 08:50 01/25/20 08:50 01/25/20 08:50 01/25/20 08:50 01/25/20 08:50 Oxygen Delivery Method Room Air Weight: 191 lb 5.78 oz Body Mass Index (BMI) 32.8 Finger Stick Blood Glucose 126 Intake and Output for Last 24 Hours 01/23/20 01/24/20 01/25/20 23:59 23:59 23:59 Intake Total 2726.67 / 2726.67 Output Total 1700 / 1700 Balance 1026.67 / 1026.67 Laboratory Results 01/24/20 10:13: POC Glucose 144 H 01/24/20 14:39: POC Glucose 165 H 01/24/20 18:27: POC Glucose 172 H 01/24/20 22:01: POC Glucose 159 H 01/25/20 02:05: POC Glucose 195 H 01/25/20 06:27: POC Glucose 142 H 01/25/20 08:10: Sodium 148 H, Potassium 4.7, Chloride 117 H, Carbon Dioxide 25.0, Anion Gap 6, BUN 48 H, Creatinine 1.70 H, Estim Creat Clear Calc 25.45, Est GFR (MDRD) Af Amer 38 L, Est GFR (MDRD) Non-Af 31 L, BUN/Creatinine Ratio 28.2 H, Glucose 131 H, Calcium 9.0 Current Medications Al Hydroxide/Mg Hydroxide (Mylanta Ii) 30 ml PO Q6H PRN PRN PRN Reason: Gastric Burning Apixaban (Eliquis) 5 mg PO BID [facility] Last Admin: 01/24/20 22:02 Dose: 5 mg Documented by: Aspirin (Aspirin, Baby) 81 mg PO DAILY@0800 [facility] Last Admin: 01/25/20 08:45 Dose: 81 mg Documented by: Atorvastatin Calcium (Lipitor) 40 mg PO QHS [facility] Last Admin: 01/24/20 22:02 Dose: 40 mg Documented by: Cholecalciferol (Vitamin D (25mcg)) 2,000 unit PO DAILY [facility] Last Admin: 01/24/20 08:00 Dose: 2,000 unit Documented by: Dextrose (D50w Syringe) 0 gm IV X1 PRN; Protocol PRN Reason: Hypoglycemia Gabapentin (Neurontin) 300 mg PO TID [facility] Last Admin: 01/25/20 06:26 Dose: 300 mg Documented by: Glucagon () 1 mg IM .X1 PRN PRN Reason: Hypoglycemia Sodium Chloride () 250 mls @ 15 mls/hr IV .[id number] PRN PRN Reason: Saline Flush Insulin Glargine (Lantus (Bkc)) 20 units SC BID [facility] Last Admin: 01/24/20 22:14 Dose: 20 units Documented by: Metoprolol Succinate (Toprol Xl (Beta Birdie)) 50 mg PO DAILY [facility] Last Admin: 01/24/20 07:59 Dose: 50 mg Documented by: Morphine Sulfate () 2 mg IV Q3H PRN PRN PRN Reason: Pain Score 6-10/10 Multivitamins (Multivitamin) 1 tablet PO DAILY@0800 [facility] Last Admin: 01/25/20 08:45 Dose: 1 tablet Documented by: Nitroglycerin (Nitrostat) 0.4 mg SUBLINGUAL Q5M PRN PRN Reason: CARDIAC/CHEST PAIN Oxycodone HCl (Oxyir) 5 mg PO Q4H PRN PRN PRN Reason: Pain Score 4-5/10 Pantoprazole Sodium (Protonix) 20 mg PO DAILY [facility] Last Admin: 01/24/20 07:59 Dose: 20 mg Documented by: Prochlorperazine Edisylate (Compazine Iv) 5 mg IV Q4H PRN PRN PRN Reason: Breakthrough nausea/vomiting Senna/Docusate Sodium (Senokot-S, Martha-Colace) 2 tablet PO BID PRN PRN PRN Reason: Constipation Sodium Chloride () 10 - 40 ml IV UD PRN PRN Reason: SALINE FLUSH Discharge Diet: Low fat/ Low Cholesterol, 1800 Calorie Control Diet Discharge Activity: Return to Normal Activity Weight Bearing Status: Weight bearing as tolerated Call your doctor if you observe: Fever of 101 or Higher, Shortness of breath, Dizziness, Fainting spells Home Medications: Medications to take at Discharge Aspirin [Aspirin, Baby] 81 mg PO DAILY@0800 08/03/16 Metoprolol(XL)Succ [Toprol Xl (Beta Birdie)] 50 mg PO DAILY 08/03/16 Multivitamin [Daily Multiple Vitamin] 1 ea PO DAILY 08/03/16 Omeprazole [Prilosec] 20 mg PO DAILY 08/03/16 Apixaban [Eliquis] 5 mg PO BID #90 tab 08/05/16 Atorvastatin Calcium [Lipitor] 40 mg PO QHS #30 tab 08/05/16 metformin 500 mg tablet 500 mg PO BID 10/08/17 gabapentin 100 mg capsule 300 mg PO TID 30 Days #150 11/10/17 furosemide 20 mg tablet 20 mg PO DAILY 11/21/18 lisinopril 10 mg tablet 10 mg PO BID 11/21/18 Cholecalciferol (Vitamin D3) [Vitamin D3] 4,000 unit PO DAILY 01/23/20 Ofloxacin 0.3% [Floxin 0.3% Otic] 1 drp LEFT EYE 4X/DAY 01/23/20 Insulin Lispro [Humalog KwikPen] See Protocol SQ TIDCM 01/24/20 Insulin Glargine [Lantus SoloStar Pen] 20 units SUBCUT BID #10 pen 01/25/20 Following Prescrptions Were Given to Patient: Insulin Glargine [Lantus SoloStar Pen] 20 units SUBCUT BID #10 pen Prescription Printed Primary Care Physician: Ava Wilson DO [Primary Care Provider] - Please follow up with your Primary Care Physician in: one week Patient Instructions: ED Blood Sugar Low Non Diabetic Disposition: Senior Care facility Minutes spent on discharge:: 35 Patient Condition:: Stable Medical Necessity - Tobacco Use Smoking Status: Never smoker Meaningful Use Info Meaningful Use Diagnoses (Choose all that apply): None applicable OBSV E&M: 26512 Observation care discharge
[2020-01-25 10:12] VITALS: PULSE 82
[2020-01-25] MEDS: Pantoprazole Sodium 20 MG Tablet PO (10:12)
[2020-01-25] MEDS: Metoprolol(XL)Succ 50 MG Tablet PO (10:12)
[2020-01-25] MEDS: APIXABAN 5 MG TABLET PO (10:12)
--- NOTE | 2020-01-25 10:18 | CASEMGMT ---
Social Work Pt ready for discharge on this date. GRACE met with pt and she is agreeable to return to [facility] but is uncertain of transportation. GRACE inquired if pt [facility] could transport and pt is unsure but gave permission for GRACE to call [facility]. Phone call to Yana and she is able to transport and will be here to oyster picker around 10:30. Pt and nursing made aware and are agreeable. Phone call to [facility] and VM left. Orders faxed. GARTH Rutherford
== END 2020-01-25 10:45 | disposition skilled nursing facility (03) ==
LOC: ED 23:45 → MS3 23:57
PROVIDERS: Admitting Provider Internal Medicine; Emergency Provider Emergency Medicine; PCP Internal Medicine; Visit Provider Student in an Organized Health Care Education/Training Program
DX: E11.649 Type 2 diabetes mellitus with hypoglycemia without coma (principal); E86.0 Dehydration; G93.41 Metabolic encephalopathy; E11.22 Type 2 diabetes mellitus with diabetic chronic kidney disease; I25.2 Old myocardial infarction; I12.9 Hypertensive chronic kidney disease with stage 1 through stage 4 chronic kidney disease, or unspecified chronic kidney disease; N18.3 Chronic kidney disease, stage 3 (moderate); Z86.718 Personal history of other venous thrombosis and embolism; Z86.711 Personal history of pulmonary embolism; Z79.899 Other long term (current) drug therapy; Z79.4 Long term (current) use of insulin; Z79.01 Long term (current) use of anticoagulants; Z79.82 Long term (current) use of aspirin; M19.90 Unspecified osteoarthritis, unspecified site; N17.9 Acute kidney failure, unspecified; K21.9 Gastro-esophageal reflux disease without esophagitis
CPT/HCPCS: 36415; 71045; 80048; 80053; 81001; 82962; 85025; 96361; 96374; 97162; 97166; 97530; 99218; 99251; 99285; J7030; A4216; G0378; G0463

== ENCOUNTER 2020-08-18 16:17 | Emergency (ER) | payer MEDICARE, MEDICAID, SELFPAY ==
[2020-01-24 00:51] VITALS: BMI 32.8
[2020-08-18 16:17] VITALS: BP 157/76; PULSE 84; RESP 16; TEMP 36.3; BMI 32.6
--- NOTE | 2020-08-18 16:37 | RAD_ITS ---
STUDY: X-RAY - RIGHT KNEE REASON FOR EXAM: Female, 75 years old. FALL, RIGHT KNEE PAIN TECHNIQUE: 4 view(s) of the knee. COMPARISON: None. FINDINGS: Normal visualized distal femur. Normal visualized proximal tibia and fibula. Normal proximal tibiofibular articulation. Normal medial femorotibial compartment. Normal lateral femorotibial compartment. Normal patellofemoral articulation. The soft tissue structures are unremarkable. RAD/Knee 4 or More Views IMPRESSION: Normal x-ray examination of the knee. Electronically Signed: Rohit Griffin MD at 17:28 EDT Tel , Service support ,
--- NOTE | 2020-08-18 16:37 | RAD_ITS ---
STUDY: X-RAY - RIGHT TIBIA AND FIBULA REASON FOR EXAM: Female, 75 years old. FALL, RIGHT KNEE PAIN TECHNIQUE: 2 view(s) of the tibia and fibula were obtained. COMPARISON: None. FINDINGS: Normal visualized tibia. Normal visualized fibula. The soft tissue structures are unremarkable. RAD/Tibia & Fibula 2 Views IMPRESSION: Normal x-ray examination of the tibia and fibula. Electronically Signed: Rohit Griffin MD at 17:29 EDT Tel , Service support ,
--- NOTE | 2020-08-18 16:38 | ED.DCSUM_ITS ---
History of Present Illness Chief Complaint: Lower Extremity Injury Informant: Patient Onset: Today Current Severity: Moderate Maximum Severity: Moderate Narrative: Patient presented secondary to fall. Patient states she tried to get up out of the chair to go look at something and lost her balance and fell, injuring her right knee. She does report injury to that right knee previously but no prior surgeries. She denies striking her head or loss of consciousness. She is currently on Eliquis secondary to history of DVT and PE. - Past Medical History (1) Myocardial infarction Status: Chronic (2) Chronic kidney disease, stage 3 Status: Chronic (3) HTN (hypertension) Status: Chronic (4) History of DVT (deep vein thrombosis) Status: Chronic (5) History of breast cancer Status: Chronic Comment: Status post right mastectomy and chemotherapy, in remission. (6) Hx of deep venous thrombosis Status: Chronic (7) Hypertension Status: Chronic (8) Pulmonary emboli Status: Chronic (9) Type 2 diabetes mellitus Status: Chronic Past Medical History - Allergies and Home Meds Allergies/Adverse Reactions: Allergies acetaminophen [From Darvocet-N] Allergy (Verified 11/19/19 10:31) Rash meperidine HCl [From Demerol] Allergy (Verified 11/19/19 10:31) Rash Penicillins Allergy (Verified 11/19/19 10:31) Rash propoxyphene HCl [From Darvon] Allergy (Verified 11/19/19 10:31) Rash propoxyphene napsylate [From Darvocet-N] Allergy (Verified 11/19/19 10:31) Rash Primary Care Physician: Ava Wilson DO [Primary Care Provider] - Prior records reviewed: Yes Surgical History: mastectomy Smoking Status: Never smoker - Family History Maternal Family History: Reports: No pertinent history Paternal Family History: Reports: No pertinent history Review of Systems General: Denies: Chills, Fever Eyes: Denies: Visual changes - bilaterally ENT: Denies: Bilateral ear pain Cardiovascular: Denies: Chest pain Respiratory: Denies: Dyspnea, Cough Gastrointestinal: Denies: Abdominal pain, Nausea, Vomiting, Diarrhea Genitourinary: Denies: Dysuria Musculoskeletal: Reports: Extremity Pain. Denies: Swelling Skin: Denies: Rash, Abrasions, Wounds Neurological: Denies: Headache Hematologic: Denies: Easy bruising, Easy bleeding Allergy: Denies: Uticaria Physical Exam Vital Signs/Narrative: Vital Signs Temp Pulse Resp BP 08/18/20 16:17 97.3 F L 84 16 157/76 H Inital Vital Signs reviewed: Yes General: Well nourished, Well developed Head: Normocephalic ENT: Moist mucous membranes Neck: Supple Cardiovascular: Regular rate, Regular rhythm Respiratory: No distress, CTA bilaterally Abdomen: Soft, Nontender Extremities: - - Mild tenderness of the right knee, right hip, and right tib- fib. No obvious deformity. Minimal pain with logroll. Equal leg lengths. Neurological: Alert, Oriented x3, - - No focal neurologic deficits. Diagnostic/Tx/Re-eval Impressions Knee X-Ray 08/18/20 16:37 IMPRESSION: Normal x-ray examination of the knee. Electronically Signed: Rohit Griffin MD at 17:28 EDT Tel , Service support , Tibia/Fibula X-Ray 08/18/20 16:37 IMPRESSION: Normal x-ray examination of the tibia and fibula. Electronically Signed: Rohit Griffin MD at 17:29 EDT Tel , Service support , Hip/Pelvis X-Ray 08/18/20 17:00 IMPRESSION: Normal x-ray examination of the pelvis and hip. Electronically Signed: Rohit Griffin MD at 17:29 EDT Tel , Service support , 08/18/20 16:37 Knee 4 or More Views [RAD] Stat Xray Tibia [Tibia & Fibula 2 Views] [RAD] Stat 08/18/20 17:00 HIP, UNI W/ Pelvis 2-3 Views [RAD] Stat - Medical Decision Making Patient was offered [place] to help with pain, however refused with nurse took this to her stating that Darvocet gives her diarrhea so she did not want to take this. In light of that she will be ordered Tylenol. Patient will be ambulated with her walker here to ensure she is able to get around okay. ED Disposition - Plan for ED Patient: Disposition: Home or Assisted Living Diagnosis: Fall, Contusion of right lower extremity Instructions: ED EXTREMITY CONTUSION Lower Referrals: Ava Wilson DO [Primary Care Provider] - 1 Week if not improving
[2020-08-18] MEDS: HYDROcodone Bitartrate/Apap 5/325 Tablet PO (16:50)
--- NOTE | 2020-08-18 17:00 | RAD_ITS ---
STUDY: X-RAY - PELVIS AND RIGHT HIP REASON FOR EXAM: Female, 75 years old. FALL, RIGHT KNEE PAIN TECHNIQUE: 3 views of the pelvis and hip. COMPARISON: None. FINDINGS: There is a non-specific bowel gas pattern. Normal visualized soft tissue structures. Normal bilateral iliac wings, sacroiliac joints and visualized sacrum. Normal bilateral superior and inferior pubic rami. Normal pubic symphysis. Normal bilateral ischial tuberosities. Normal visualized femoral head. Normal acetabulum. Normal hip joint. RAD/HIP, UNI W/ Pelvis 2-3 Views IMPRESSION: Normal x-ray examination of the pelvis and hip. Electronically Signed: Rohit Griffin MD at 17:29 EDT Tel , Service support ,
[2020-08-18 17:45] VITALS: BP 119/62; PULSE 82; RESP 18; O2SAT 98
--- NOTE | 2020-08-18 17:58 | ED.RN ---
report given to [facility] petty [place]te[place] rn. requested transport back to facility. they were unable to provide. juanito (listed next of kin) called for transport back to facility 30 min eta given. pt informed and d/c to waiting area. katelyn cannon rn [id number]
== END 2020-08-18 18:45 | disposition home or self-care (01) ==
PROVIDERS: Emergency Provider Emergency Medicine; PCP Internal Medicine
DX: S80.11XA Contusion of right lower leg, initial encounter (principal); W07.XXXA Fall from chair, initial encounter; Y93.9 Activity, unspecified; Y92.9 Unspecified place or not applicable; Y99.9 Unspecified external cause status; I12.9 Hypertensive chronic kidney disease with stage 1 through stage 4 chronic kidney disease, or unspecified chronic kidney disease; E11.22 Type 2 diabetes mellitus with diabetic chronic kidney disease; N18.30 Chronic kidney disease, stage 3 unspecified; Z79.82 Long term (current) use of aspirin; Z79.4 Long term (current) use of insulin; Z79.01 Long term (current) use of anticoagulants; Z79.899 Other long term (current) drug therapy; I25.2 Old myocardial infarction; Z86.718 Personal history of other venous thrombosis and embolism; Z86.711 Personal history of pulmonary embolism; Z85.3 Personal history of malignant neoplasm of breast
CPT/HCPCS: 73502; 73564; 73590; 99284

== ENCOUNTER → 2021-06-11 14:52 | Outpatient (CLI) | payer MEDICARE, MEDICAID, SELFPAY ==
[2020-12-02 12:22] VITALS: BMI 35.0
--- NOTE | 2021-06-11 14:57 | VDUE_ITS ---
Reason For Study: arm pain Right Proximal Right jugular vein is spontaneous, widely patent, phasic, with no intraluminal echogenicity noted. Right subclavian vein is spontaneous, widely patent, phasic, with no intraluminal echogenicity noted. Right Lower Arm Right radial vein is compressible. Right ulnar vein is compressible. Right Arm Right axillary vein is spontaneous, patent, phasic, competent, compressible and demonstrates augmentation. Right brachial vein is compressible. Right cephalic vein is compressible. Right basilic vein is compressible. Prelim faxed to Dr. Wilson. VL/Venous Duplex US, Unilateral Interpretation Summary Deep veins of the right upper extremity are patent and compressible segmentally . There is no evidence of deep vein thrombosis. The superficial veins of the right upper extr emity, the basilic and cephalic veins, are patent and compressible. There is no evidence of right upper extremity superficial thrombophlebitis involving the veins imaged. Ordering Physician: Ava Wilson Performed By: Kuldip Gallardo RVT ?
== END ==
PROVIDERS: PCP Internal Medicine; Referring Provider Internal Medicine; Visit Provider Internal Medicine
DX: M79.601 Pain in right arm (principal)
CPT/HCPCS: 93971

== ENCOUNTER → 2021-07-30 13:45 | Outpatient (CLI) | payer MEDICARE, MEDICAID, SELFPAY ==
--- NOTE | 2021-07-30 13:48 | BI_ITS ---
MAMMOGRAPHY - UNILATERAL SCREENING: LEFT BREAST REASON FOR EXAM: Female, 76 years old. Routine annual screening examination (unilateral). PERTINENT HISTORY: Personal history of breast cancer. The patient is status post right mastectomy. TECHNIQUE: Digital unilateral breast maria dolores (3D mammographic acquisition) in the CC and MLO projections. 2-D mediolateral oblique (MLO) and craniocaudad (CC) views of both breasts were obtained. CAD: Full Field Digital Mammography with Computer Added Detection was performed. COMPARISON: Comparison is made with prior study dated 11/29/2017 and 08/03/2012. FINDINGS: Breast Composition: The breasts are almost entirely fatty. There are no dominant masses or suspicious calcifications. No other significant abnormalities are identified. There has been no significant change since the prior study. BI/SCREEN MAMM (CAD) W/MARIA DOLORES UNI L IMPRESSION: Stable unilateral screening mammogram. Yearly follow-up mammogram recommended. (A) ASSESSMENT CATEGORY: BIRADS Category 1: Negative. A letter regarding these results will be sent to the patient by the facility within 30 days. Approximately 10% of breast cancers are not detected by mammography. A normal mammogram should not delay biopsy of a clinically suspicious abnormality. [id number] Electronically Signed: Compa Cherry MD at 15:06 EDT , Service support ,
--- NOTE | 2021-07-30 13:58 | BD_ITS ---
STUDY: DUAL ENERGY X-RAY ABSORPTIOMETRY / DXA REASON FOR EXAM: Female, 76 years old. V76.12ScreeningBONE DENSITY REASON FOR EXAM TECHNIQUE: Bone Mineral Density (BMD) measurements of lumbar spine and bilateral hips were obtained. COMPARISON: Comparison is made with prior study dated 12/07/2017. FINDINGS: Lumbar Spine (L1-L4): g/cm2 (0.996) / T-score (-0.5) / Z-score (2.0) Findings are suggestive of normal bone density with a low fracture risk. Left Femur Total: g/cm2 (0.796) / T-score (-1.2) / Z-score (0.6) Left Femoral Neck: g/cm2 (0.575) / T-score (-2.5) / Z-score (-0.4) Right Femur Total: g/cm2 (0.857) / T-score (-0.7) / Z-score (1.1) Right Femoral Neck: g/cm2 (0.546) / T-score (-2.7) / Z-score (-0.6) The T-Scores on the most recent prior examination were: Lumbar Spine (L1-L4): There has been worsening of bone density since the previous examination. Left Femur Total: 1.5% which represents an improvement of 5.2%. Right Femur Total: which represents an improvement of 4.2%. BD/Dexa Bone Density Study IMPRESSION: The patient is considered osteoporotic as outlined below according to World Arturo Organization (WHO) criteria with a high fracture risk. There has been worsening of bone density since the previous examination. Reference Information: The T-score is the number of standard deviations above or below the standard which is normal for young adults at their peak bone mineral density. The World Health Organization (WHO) interprets the T-scores as follows: Above -1 Normal bone density Between -1 and -2.5 Osteopenia Equal to / or below -2.5 Osteoporosis As a practical clinical guideline, osteopenia may be graded as follows: Mild -1 through -1.5 Moderate -1.6 through -2.0 Severe -2.1 through -2.4 The Z-score is the number of standard deviations above or below age-matched controls. A Z-score of less than -1.5 would be considered abnormal. References: 1. NIH Osteoporosis and Related Bone Diseases www osteo.org 2. International Society for Clinical Densitometry www iscd.org 3. National Osteoporosis Foundation www nof.org Electronically Signed: Compa Cherry MD at 15:20 EDT , Service support ,
== END ==
PROVIDERS: PCP Internal Medicine; Visit Provider Internal Medicine
DX: Z12.31 Encounter for screening mammogram for malignant neoplasm of breast (principal); Z78.0 Asymptomatic menopausal state; M81.0 Age-related osteoporosis without current pathological fracture; Z85.3 Personal history of malignant neoplasm of breast
CPT/HCPCS: 77063; 77067; 77080

== ENCOUNTER 2021-11-30 14:30 | Outpatient (CLI) | payer MEDICARE, MEDICAID, SELFPAY ==
--- NOTE | 2021-11-30 14:33 | US_ITS ---
STUDY: RENAL ULTRASOUND - COMPLETE REASON FOR EXAM: Female, 76 years old. CKD 4 TECHNIQUE: Ultrasound evaluation of the kidneys was performed with real-time and static michaels-scale imaging. COMPARISON: None. FINDINGS: RIGHT KIDNEY: with mild renal atrophy. The right kidney measures 7.8 x 5.2 cm. There is diffuse thinning of the renal cortex. The renal cortex measures 0.9 cm. There is no right renal mass or cyst. There are no right renal calculi. There is no right hydronephrosis. DISTAL RIGHT URETER: There is non-visualization of the distal right ureter. There is no demonstrated right ureterovesical junction calculus. There is a visualized right ureteral jet. LEFT KIDNEY: with mild renal atrophy. The left kidney measures 7.8 x4.6 cm. There is a normal cortex of the left kidney. The renal cortex measures 1.1 cm. There is no left renal mass or cyst. There are no left renal calculi. There is no left hydronephrosis. DISTAL LEFT URETER: There is non-visualization of the distal left ureter. There is no demonstrated left ureterovesical junction calculus. There is a visualized left ureteral jet. AORTA: There is obscuration of the abdominal aorta by overlying bowel gas I.V.C.: The IVC is obscured. BLADDER: The distended urinary bladder has a volume of 60 ml.There is a normal wall thickness of the distended urinary bladder. There is no demonstrated mass within the urinary bladder. There are no demonstrated bladder calculi. US/Kidney and Bladder IMPRESSION: There are no acute findings. Electronically Signed: Negrito Ocampo MD at 15:30 EST ,
== END 2021-11-30 23:59 | disposition short-term general hospital (02) ==
PROVIDERS: PCP Internal Medicine; Referring Provider Internal Medicine; Visit Provider Internal Medicine
DX: N18.4 Chronic kidney disease, stage 4 (severe) (principal)
CPT/HCPCS: 76770

== ENCOUNTER 2021-12-19 08:28 | Outpatient (CLI) | payer MEDICARE, MEDICAID, SELFPAY ==
--- NOTE | 2021-12-19 08:33 | US_ITS ---
STUDY: ABDOMINAL ULTRASOUND - RIGHT UPPER QUADRANT REASON FOR VISIT: Female, 76 years old ABN STOOL COLOR TECHNIQUE: Ultrasound evaluation of the right upper quadrant was performed with real-time and static almonte-scale imaging. TECHNICAL QUALITY: Adequate. COMPARISON: None. FINDINGS: Liver: The liver measures 12.5 cm. There is normal echogenicity of the liver. The bile ducts are within normal limits. There is hepatic color flow. The direction of portal flow is hepatopetal. There is no demonstrated mass lesion. Gallbladder: The patient is status post cholecystectomy.. Common Bile Duct (C.B.D.): The common bile duct measures 7 mm. Pancreas: Normal size of the head, body and tail of the pancreas. There is normal echogenicity of the pancreas. There is no demonstrated pancreatic mass or cyst. Right Kidney: Normal size of the right kidney. The right kidney measures 8.4 cm. Normal renal cortex. The right cortex measures 0.8 cm. There is no demonstrated renal mass or cyst. There is no right hydronephrosis. US/Abdomen Limited IMPRESSION: Normal right upper quadrant ultrasound examination after cholecystectomy. Electronically Signed: Rohit Griffin MD at 9:19 EST ,
== END 2021-12-19 23:59 | disposition home or self-care (01) ==
PROVIDERS: PCP Internal Medicine; Visit Provider Internal Medicine
DX: R19.5 Other fecal abnormalities (principal)
CPT/HCPCS: 76705

== ENCOUNTER 2021-12-25 14:04 | Emergency (ER) | payer MEDICARE, MEDICAID, SELFPAY ==
[2021-12-25 14:04] VITALS: BP 157/111; PULSE 86; RESP 16; TEMP 36.4; O2SAT 100; BMI 34.3
[2021-12-25 17:51] VITALS: BP 102/53
[2021-12-25 18:28] LABS: Absolute Lymphocyte Count 2.04 X10^3/uL (0.83-4.51); Absolute Neutrophil Count 6.1 X10^3/uL (2.0-7.7); Basophil# 0.03 X10^3/uL; Basophil% 0.3 % (0-1); Eosinophil# 0.13 X10^3/uL; Eosinophils% 1.4 % (0-5); Hematocrit 32.4 % (37-47); Hemoglobin 10.1 g/dL (12.0-15.0); Lymphocyte # 2.04 X10^3/ul (0.83-4.51); Lymphocyte % 22.3 % (19-41); Mean Corp Hgb Conc 31.2 g/dL (32-36); Mean Corpuscular Hgb 28.5 pg (27.0-32.0); Mean Corpuscular Volume 91.5 fL (81-99); Mean Platelet Vol. 10.5 fl (6.2-12.0); Monocyte# 0.82 X10^3/uL; NRBC Flagged by Analyzer 0 % (0-5); Neutrophil # 6.09 X10^3/uL (2.7-7.7); Neutrophil % 66.5 % (47-70); POSITIVE MORPHOLOGY YES; Platelet Count 156 K/mm3 (150-450); RBC Distribution Width CV 20.1 % (11.6-14.6); RBC Distribution Width SD 67.2 fl (35.1-43.9); Red Blood Count 3.54 M/mm3 (4.2-5.4); White Blood Count 9.2 K/mm3 (4.4-11.0)
[2021-12-25 18:36] LABS: Differential Indicated SCAN CRITERIA MET
[2021-12-25 18:43] LABS: Anion Gap 8 (5-15); BUN 82 mg/dL (7-18); BUN/Creat Ratio 36.8 RATIO (10-20); Calcium,Total 9.8 mg/dL (8.5-10.1); Chloride 111 mmol/L (98-107); Creatinine, Serum 2.23 mg/dL (0.55-1.02); EST Glomerular Filtration Rate 23 mL/min (>60); Est Glom Filt Rate - Afr Amer 28 mL/min (>60); Estimated Creatinine Clearance 18.82 ml/min; Glucose 62 mg/dL (74-106); Potassium 4.6 mmol/L (3.5-5.1); Sodium Level 140 mmol/L (136-145)
[2021-12-25 19:06] LABS: Platelet Estimate ADEQUATE (ADEQ)
[2021-12-25 19:07] LABS: Anisocytosis 1+; Macrocytosis 1+; Ovalocyte RARE; Red Cell Morphology N CHROM NORMAL (NORM C&C)
--- NOTE | 2021-12-25 19:10 | EDS_ITS ---
HPI History of Present Illness Chief Complaint: Abn Labs Informant: patient and legal guardian Narrative Narrative: Patient from detention. They evidently did blood work that showed high potassium. We do not know what level this was. She was given Kayexalate. However, she then had diarrhea. They did not know that Kayexalate causes diarrhea so she was sent in here actually for the diarrhea. It now has stopped. Patient feels fine. She has no abdominal pain. No chest pain trouble breathing. She is feeling much better now. No blood was seen in the stool. She has a history of kidney dysfunction but has never had high potassium. [facility] Medical History (Updated 12/25/21 @ 19:[address] Umesh Patterson MD) acute chronic kidney diseae stage 3 Acute encephalopathy Chronic kidney disease, stage 3 COVID-19 virus detected (10/2020) Essential (primary) hypertension History of breast cancer History of DVT (deep vein thrombosis) History of non-ST elevation myocardial infarction (NSTEMI) (08/03/16) History of pulmonary embolus (PE) (08/04/16) Type 2 diabetes mellitus without complications Home Medications aspirin 81 mg PO DAILY@0800 08/03/16 [History Last Taken 01/23/20] metoprolol succinate 50 mg PO DAILY 08/03/16 [History Last Taken 01/23/20] multivitamin 1 ea PO DAILY 08/03/16 [History Last Taken 01/23/20] omeprazole 20 mg PO DAILY 08/03/16 [History Last Taken 01/23/20] apixaban 5 mg PO BID #90 tab 08/05/16 [Rx Last Taken 01/23/20] atorvastatin 40 mg PO QHS #30 tab 08/05/16 [Rx Last Taken 01/22/20] furosemide 20 mg tablet 20 mg PO DAILY 11/21/18 [History Last Taken 01/23/20] lisinopril 10 mg tablet 10 mg PO BID 11/21/18 [History Last Taken 01/23/20] cholecalciferol (vitamin D3) 4,000 unit PO DAILY 01/23/20 [History Last Taken 01/23/20] ofloxacin 1 drp LEFT EYE 4X/DAY 01/23/20 [History Last Taken 01/23/20] insulin lispro See Protocol SQ TIDCM 01/24/20 [History Last Taken 01/23/20] insulin glargine 20 units SUBCUT BID #10 pen 01/25/20 [Rx Last Taken Unknown] acetaminophen 650 mg tablet,extended release 650 mg PO Q12H PRN 12/02/20 [History Last Taken Unknown] gabapentin 300 mg capsule 300 mg PO TID 12/02/20 [History Last Taken Unknown] Allergy/AdvReac Type Severity Reaction Status Date / Time acetaminophen Allergy Rash Verified 12/25/21 14:05 [From Darvocet-N] meperidine HCl [From Demerol] Allergy Rash Verified 12/25/21 14:05 Penicillins Allergy Rash Verified 12/25/21 14:05 propoxyphene HCl Allergy Rash Verified 12/25/21 14:05 [From Darvon] propoxyphene napsylate Allergy Rash Verified 12/25/21 14:05 [From Darvocet-N] Surgical History H/O right mastectomy Social History Smoking Status: Never smoker alcohol intake: never substance use type: does not use caffeine: Yes Type: coffee what type of physical activity do you participate in: none seatbelt use: always do you feel safe at home: Yes ROS ROS ED Constitutional Constitutional ED: Denies chills or fever(s) ENT ENT ED: Denies rhinorrhea Cardiovascular Cardiovascular: Denies chest pain or palpitations Respiratory/Chest Respiratory/Chest: Denies cough or dyspnea Gastrointestinal Gastrointestinal: Reports diarrhea; Denies abdominal pain Genitourinary Genitourinary ED: Reports other Details: Patient still makes urine normally. No change. ; Denies dysuria Musculoskeletal Musculoskeletal: Denies myalgias Integumentary Denies rash Neurologic Neurologic: Denies headache(s), paresthesias or weakness Allergic/Immunologic Allergic/Immunologic ED: Denies mouth swelling or urticaria EXAM Physical Exam Const Vital Signs: 12/25/21 14:04 12/25/21 17:51 Temperature 97.6 F L Temperature Source Temporal Pulse Rate 86 Respiratory Rate 16 Respiratory Pattern Normal Blood Pressure 157/111 H 102/53 L Blood Pressure Mean 126 69 Pulse Ox 100 Oxygen Delivery Method Room Air Patient awake alert appropriate. She is very pleasant and friendly. 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 Positive well nourished and well developed General Appearance ED: well developed; Negative for cyanotic or diaphoretic HEENT Negative for trauma Eyes General Eye ED: Negative for pale conjunctiva or scleral icterus Neck no JVD Chest Wall inspection of chest normal Resp normal respiratory effort and clear to auscultation bilaterally Cardio regular rate and regular rhythm GI normal to inspection, nondistended, normoactive bowel sounds and non-tender Palpation: soft Extremity Extremity Narrative: Bilateral edema which is chronic. Neuro Sensorium / Orientation: alert Psych mental status grossly normal Skin no rashes or lesions noted MDM MDM MDM Narrative Medical decision making narrative: Patient had blood work done here. She has some baseline renal dysfunction that is just slightly worse than normal. However, she is eating and drinking and I do not think this requires IV fluids. Her potassium is normal at 4 6. I do not know what it was before. I think this can be followed as an outpatient. She does not feel sick in any way. There is been no vomiting. The diarrhea occurred several times only after getting Kayexalate and is now appears to have stopped. Both are happy with this plan. Lab Data Labs: Laboratory Results - last 24 hr 12/25/21 12/25/21 18:20 18:20 WBC 9.2 RBC 3.54 L Hgb 10.1 L Hct 32.4 L MCV 91.5 MCH 28.5 MCHC 31.2 L RDW Std Deviation 67.2 H RDW Coeff of Joelle 20.1 H Plt Count 156 MPV 10.5 Immature Gran % (Auto) 0.500 Neut % (Auto) 66.5 Lymph % (Auto) 22.3 [place] % (Auto) 9.0 Eos % (Auto) 1.4 Baso % (Auto) 0.3 Absolute Neuts (auto) 6.1 Absolute Lymphs (auto) 2.04 Nucleated RBC % 0 Platelet Estimate ADEQUATE RBC Morphology N CHROM Anisocytosis 1+ Macrocytosis 1+ Ovalocytes RARE Sodium 140 Potassium 4.6 Chloride 111 H Carbon Dioxide 21.0 Anion Gap 8 BUN 82 H Creatinine 2.23 H Estim Creat Clear Calc 18.82 Est GFR (MDRD) Af Amer 28 L Est GFR (MDRD) Non-Af 23 L BUN/Creatinine Ratio 36.8 H Glucose 62 L Calcium 9.8 Discharge Plan Triage Chief Complaint: Abn Labs ED Provider: Umesh Patterson Dx/Rx/DC Orders Clinical Impression: History of hyperkalemia, Diarrhea due to drug Instructions: ED Hyperkalemia Prescriptions: No Action furosemide 20 mg tablet 20 mg PO DAILY RF: 0 lisinopril 10 mg tablet 10 mg PO BID RF: 0 acetaminophen 650 mg tablet extended release 650 mg PO Q12H PRNRF: 0 gabapentin 300 mg capsule 300 mg PO TID RF: 0 multivitamin 1 EACH tablet 1 ea PO DAILY RF: 0 metoprolol succinate 50 MG tablet 50 mg PO DAILY RF: 0 omeprazole 20 MG capsule 20 mg PO DAILY RF: 0 aspirin 81 MG tablet,chewable 81 mg PO DAILY@0800 RF: 0 atorvastatin 40 MG tablet 40 mg PO QHS Qty: 30 RF: 0 apixaban 5 MG tablet 5 mg PO BID Qty: 90 RF: 0 ofloxacin 1 DROP bottle 1 drp LEFT EYE 4X/DAY RF: 0 cholecalciferol (vitamin D3) 2,000 UNIT capsule 4,000 unit PO DAILY RF: 0 insulin lispro 100 UNIT/ML insulin pen See Protocol unit SQ TIDCM RF: 0 insulin glargine 100 UNITS/ML insulin pen 20 units subcut BID Qty: 10 RF: 0 Primary Care Provider: Ava Wilson Referrals: Ava Wilson DO [Primary Care Provider] - 3-5 Days Activity Restrictions/Additional Instructions: You will need your potassium rechecked within 2 to 3 days to make sure it is not rising again. Slightly increase overall fluid intake. Disposition Disposition: Home, Self Care
== END 2021-12-25 19:31 | disposition home or self-care (01) ==
PROVIDERS: Emergency Medicine; Emergency Provider Emergency Medicine; PCP Internal Medicine; Visit Provider Emergency Medicine
DX: K52.1 Toxic gastroenteritis and colitis (principal); E11.22 Type 2 diabetes mellitus with diabetic chronic kidney disease; Z79.4 Long term (current) use of insulin; N18.30 Chronic kidney disease, stage 3 unspecified; I12.9 Hypertensive chronic kidney disease with stage 1 through stage 4 chronic kidney disease, or unspecified chronic kidney disease; T50.3X5A Adverse effect of electrolytic, caloric and water-balance agents, initial encounter; Z79.82 Long term (current) use of aspirin; Z79.01 Long term (current) use of anticoagulants; Z79.899 Other long term (current) drug therapy; I25.2 Old myocardial infarction; Z86.16 Personal history of COVID-19; Z86.718 Personal history of other venous thrombosis and embolism; Z86.711 Personal history of pulmonary embolism; Z85.3 Personal history of malignant neoplasm of breast
CPT/HCPCS: 80048; 85025; 99284; A4216

== ENCOUNTER 2022-02-06 08:44 | Outpatient (CLI) | payer MEDICARE, MEDICAID, SELFPAY ==
--- NOTE | 2022-02-06 08:50 | CT_ITS ---
STUDY: CT BRAIN WITHOUT CONTRAST REASON FOR EXAM: Female, 76 years old. HEADACHE RADIATION DOSAGE (If Supplied By Facility): CTDIvol = ( 44.99 ) mGy, DLP = ( 779.24 ) mGycm TECHNIQUE: Transaxial CT imaging of the brain was performed without administration of intravenous contrast material. Individualized dose optimization techniques were used for this CT. COMPARISON: CT head 05/31/2012. FINDINGS: BRAIN: No acute bleed. No edema. Decreased attenuation in the periventricular white matter bilaterally. Rubio-white matter differentiation is maintained. Arterial calcifications. VENTRICLES AND SULCI: Ventricles and sulci are prominent. EXTRA-AXIAL: No hemorrhage, fluid collection, or mass. CALVARIUM / SKULL BASE: Unremarkable. FACE/SINUSES: Unremarkable. SOFT TISSUES: Unremarkable. CT/Brain/Head without Contrast IMPRESSION: No acute intracranial abnormality. Chronic microvascular ischemic disease. Electronically Signed: Katalina Davenport MD at 5:39 EDT ,
== END 2022-02-06 23:59 | disposition home or self-care (01) ==
LOC: CT 08:44
PROVIDERS: PCP Internal Medicine; Visit Provider Internal Medicine
DX: R51.9 Headache, unspecified (principal)
CPT/HCPCS: 70450

== ENCOUNTER 2022-09-16 06:57 | Emergency (ER) | payer MEDICARE, MEDICAID, SELFPAY ==
[2022-09-16 06:58] VITALS: BP 181/62; PULSE 96; RESP 14; TEMP 36.4; O2SAT 98; BMI 36.0
--- NOTE | 2022-09-16 07:12 | CT_ITS ---
STUDY: CT CERVICAL SPINE WITHOUT CONTRAST REASON FOR EXAM: Female, 77 years old. History of fall. Abrasions to the left side of the neck and left upper extremity. RADIATION DOSAGE (If Supplied By Facility): CTDIvol = ( 26.34 ) mGy, DLP = ( 485.01 ) mGycm TECHNIQUE: High resolution transaxial imaging was performed without contrast material. Sagittal and coronal images were reconstructed. Individualized dose optimization techniques were used for this CT. COMPARISON: None FINDINGS: Normal craniovertebral junction. Normal anterior atlantoaxial articulation. Normal odontoid process. Normal cervical lordosis. Normal vertebral bodies and posterior osseous elements. C2-3: Normal endplates. Normal disc height and morphology. Normal central canal and intervertebral neuroforamina. C3-4: There is a moderate degree of disc space narrowing and spondylosis. Uncovertebral arthrosis. Moderate degree of left neural foraminal stenosis and moderate degree of central canal stenosis. C4-5: Marked degree of disc space narrowing. Spondylosis. Facet joint osteoarthritis. Uncovertebral arthrosis. Bilateral neural foraminal stenosis worse on the right side. C5-6: Marked degree of a disc space narrowing. Spondylosis. Uncovertebral arthrosis. Bilateral neural foraminal stenosis. C6-7: Normal endplates. Normal disc height and morphology. Normal central canal and intervertebral neuroforamina. C7-T1: Normal endplates. Normal disc height and morphology. Normal central canal and intervertebral neuroforamina. Normal visualized soft tissue structures. CT/Spine Cervical without Contras IMPRESSION: Multilevel degenerative changes, as described above. Electronically Signed: Compa Cherry MD at 8:29 EST ,
--- NOTE | 2022-09-16 07:12 | RAD_ITS ---
STUDY: X-RAY - PELVIS REASON FOR EXAM: Female, 77 years old. Pain following a fall. TECHNIQUE: One view of the pelvis was obtained. COMPARISON: None. FINDINGS: There is a non-specific bowel gas pattern. There are multiple calcified phleboliths. Normal bilateral iliac wings, sacroiliac joints and visualized sacrum. Normal visualized bilateral superior and inferior pubic rami. Normal pubic symphysis. Normal ischial tuberosities. Normal visualized right femoral head. There is osteoarthritic spur formation of the right acetabular rim. There is mild articular joint space narrowing of the right hip. Normal visualized left femoral head. There is osteoarthritic spur formation of the left acetabular rim. There is mild articular joint space narrowing of the left hip. RAD/Pelvis 1 or 2 Views IMPRESSION: Degenerative changes. Electronically Signed: Compa Cherry MD at 8:36 EST ,
--- NOTE | 2022-09-16 07:12 | CT_ITS ---
STUDY: CT BRAIN WITHOUT CONTRAST REASON FOR EXAM: Female, 77 years old. Altered mental status. History of fall. RADIATION DOSAGE (If Supplied By Facility): CTDIvol = ( 44.99 ) mGy, DLP = ( 846.73 ) mGycm TECHNIQUE: Transaxial CT imaging of the brain was performed without administration of intravenous contrast material. Individualized dose optimization techniques were used for this CT. COMPARISON: Comparison is made with prior study dated 02/06/2022. FINDINGS: Normal soft tissue structures. Normal calvarium. There is mild cerebral atrophy with widening of the extra-axial spaces and ventricular dilatation. There are areas of decreased attenuation within the white matter tracts of the supratentorial brain, consistent with microvascular disease changes. There are small punctate calcifications of the basal ganglia which are seen in the aging brain as a normal variant. Normal brainstem. There is mild cerebellar atrophy. There is no intracranial hemorrhage. There are no findings of an acute ischemic infarction. Atherosclerotic calcification of the vertebral arteries and cavernous portions of the internal carotid arteries bilaterally. Normal visualized paranasal sinuses. CT/Brain/Head without Contrast IMPRESSION: Chronic involutional changes of the brain. Electronically Signed: Compa Cherry MD at 8:35 EST ,
--- NOTE | 2022-09-16 07:12 | RAD_ITS ---
STUDY: X-RAY CHEST REASON FOR EXAM: Female, 77 years old. ams TECHNIQUE: Single AP portable view of the chest. COMPARISON: Comparison is made with prior chest radiograph dated 01/15/2022. FINDINGS: EKG electrodes are seen. The lungs are clear and expanded. There is no demonstrated pleural abnormality. Normal size heart. Normal mediastinum and loi. Normal visualized pulmonary arteries. Normal visualized aortic arch and descending thoracic aorta. There are diffuse degenerative changes of the visualized thoracic spine. Normal visualized ribs, clavicles, and shoulders. Surgical clips are seen in the right upper quadrant are most likely secondary to prior cholecystectomy. RAD/Chest 1 View (Portable) IMPRESSION: No acute abnormality is seen. Electronically Signed: Compa Cherry MD at 8:35 EST ,
--- NOTE | 2022-09-16 07:14 | EDS_ITS ---
HPI HPI - Fall History of Present Illness Chief Complaint: Fall Narrative Narrative: 77-year-old female presenting for evaluation after a fall. Patient is a poor informant secondary to dementia. She cannot give many details to her fall. She states she was bending over to pick something up and that is it. She cannot describe the fall. She states she does not have any pain. She is alert to self only. Patient on Eliquis for history of PE. [facility] Medical History Chronic kidney disease, stage 3 COVID-19 virus detected (10/2020) Essential (primary) hypertension History of breast cancer History of DVT (deep vein thrombosis) History of non-ST elevation myocardial infarction (NSTEMI) (08/03/16) History of pulmonary embolus (PE) (08/04/16) Obesity Type 2 diabetes mellitus without complications Home Medications aspirin 81 mg chewable tablet 81 mg PO DAILY@0800 heart health 08/03/16 [History Last Taken 01/23/20] metoprolol succinate 50 mg tablet,extended release 24 hr 50 mg PO DAILY hypertension 08/03/16 [History Last Taken 01/23/20] multivitamin 1 ea PO DAILY supplement 08/03/16 [History Last Taken 01/23/20] omeprazole 20 mg capsule,delayed release 20 mg PO DAILY GERD 08/03/16 [History Last Taken 01/23/20] apixaban 5 mg tablet 5 mg PO BID #90 tabs 08/05/16 [Rx Last Taken 01/23/20] atorvastatin 40 mg tablet 40 mg PO QHS #30 tabs 08/05/16 [Rx Last Taken 01/22/20] lisinopril 10 mg tablet 10 mg PO BID blood pressure 11/21/18 [History Last Taken 01/23/20] cholecalciferol (vitamin D3) 50 mcg (2,000 unit) capsule 4,000 unit PO DAILY supplement 01/23/20 [History Last Taken 01/23/20] ofloxacin 0.3 % ear drops 1 drp LEFT EYE 4X/DAY 01/23/20 [History Last Taken 01/23/20] insulin lispro 100 unit/mL subcutaneous pen See Protocol SQ TIDCM diabetes 01/24/20 [History Last Taken 01/23/20] acetaminophen 650 mg tablet,extended release 650 mg PO Q12H PRN Pain 12/02/20 [History Last Taken Unknown] ferrous sulfate 325 mg (65 mg iron) tablet 325 mg PO DAILY 07/20/22 [History Last Taken Unknown] ofloxacin 0.3 % eye drops 1 drp ophthalmic (eye) BID 07/20/22 [History Last Taken Unknown] insulin glargine 100 unit/mL (3 mL) subcutaneous pen 40 units SC BID diabetes 09/16/22 [History Last Taken Unknown] Allergy/AdvReac Type Severity Reaction Status Date / Time acetaminophen Allergy Rash Verified 09/16/22 07:03 [From Darvocet-N] meperidine HCl [From Demerol] Allergy Rash Verified 09/16/22 07:03 Penicillins Allergy Rash Verified 09/16/22 07:03 propoxyphene HCl Allergy Rash Verified 09/16/22 07:03 [From Darvon] propoxyphene napsylate Allergy Rash Verified 09/16/22 07:03 [From Darvocet-N] Surgical History H/O right mastectomy Social History Smoking Status: Never smoker alcohol intake: never substance use type: does not use caffeine: Yes Type: coffee what type of physical activity do you participate in: none seatbelt use: always do you feel safe at home: Yes ROS ROS ED Review of Systems ROS Unobtainable: due to mental status EXAM Physical Exam Const Vital Signs: 09/16/22 06:58 09/16/22 07:13 Temperature 97.6 F L Temperature Source Temporal Pulse Rate 96 Respiratory Rate 14 Respiratory Effort Normal Non-Labored Respiratory Depth Normal Respiratory Pattern Normal Blood Pressure 181/62 H Blood Pressure Mean 101 Pulse Ox 98 Oxygen Delivery Method Room Air Positive well nourished General Appearance ED: NAD HEENT Reports normocephalic Eyes PERRL and EOMs intact bilaterally Eyes Narrative: Dried blood around the left upper and lower eyelid. No facial bone tenderness. Extraocular motion is normal. No evidence of entrapment. TMs show no hemotympanum. No evidence of basilar skull fracture. General Eye ED: Negative for pale conjunctiva or scleral icterus Neck full ROM and no lymphadenopathy Chest Wall inspection of chest normal Cardio regular rate and regular rhythm GI non-tender Back/Spine Cervical Spine: Negative for cervical spine tenderness Thoracic Spine / Upper Back: Negative for thoracic spinal tenderness Lumbar Spine / Lower Back: Negative for lumbar spinal tenderness Extremity Extremity Narrative: Patient able to move all 4 extremities. Patient able to lift both legs up off the bed but states is some pain in her hip but cannot localize it. Negative logroll. No leg shortening or abnormal rotation Neuro CN's II-XII intact bilaterally, moves all extremities and no focal motor deficits Sensorium / Orientation: alert and oriented to person Skin Skin Narrative: Excoriation to the left upper scapular region with slight hematoma. Minimally tender to palpation. No active bleeding. MDM MDM MDM Narrative Medical decision making narrative: Patient presenting after a fall. She is a poor informant. She denies pain on examination. She has a contusion of the left upper shoulder blade. I did basic lab work and her CBC is unremarkable. Creatinine 1.72 and actually improved from her baseline. Potassium slightly elevated at 5.4. Urinalysis negative for infection. I did obtain x-rays of the chest and the pelvis on my interpretation there is no acute process. The radiologist her procedures and agrees. CT brain and cervical spine are negative for acute findings. Patient was up and ambulated very well. I feel at this point she stable for discharge home. Return precautions discussed. Impression: 1. Mechanical fall 2. Closed head injury 3. Back contusion Lab Data Labs: Laboratory Results - last 24 hr 09/16/22 09/16/22 09/16/22 07:55 07:55 09:10 WBC 5.9 RBC 3.47 L Hgb 11.1 L Hct 32.7 L MCV 94.2 MCH 32.0 MCHC 33.9 RDW Std Deviation 43.5 RDW Coeff of Joelle 12.7 Plt Count 134 L MPV 10.2 Immature Gran % (Auto) 0.300 Neut % (Auto) 59.9 Lymph % (Auto) 28.2 Dickenson % (Auto) 8.0 Eos % (Auto) 3.1 Baso % (Auto) 0.5 Absolute Neuts (auto) 3.5 Absolute Lymphs (auto) 1.65 Nucleated RBC % 0 Sodium 143 Potassium 5.4 H Chloride 111 H Carbon Dioxide 25.0 Anion Gap 7 BUN 45 H Creatinine 1.72 H Estim Creat Clear Calc 24.03 Est GFR (MDRD) Af Amer 37 L Est GFR (MDRD) Non-Af 31 L BUN/Creatinine Ratio 26.2 H Glucose 209 H Calcium 9.1 Urine Color Yellow Urine Clarity Sl. Cloudy Urine pH 6.0 Ur Specific [place] 1.010 Urine Protein Negative Urine Glucose (UA) Normal Urine Ketones Negative Urine Occult Blood 25 H Urine Nitrite Negative Urine Bilirubin Negative Urine Urobilinogen Normal Ur Leukocyte Esterase 100 H Urine RBC 0-5 SEEN Urine WBC 10-25 SEEN Ur Squamous Epith Cells 0-5 SEEN Urine Bacteria 1+ Urine Mucus 0 SEEN Radiography Diagnostic Testing: Clinical Impression(s) from Imaging Studies Brain CT 09/16/22 07:12 IMPRESSION: Chronic involutional changes of the brain. Electronically Signed: Compa Cherry MD at 8:35 EST , Cervical Spine CT 09/16/22 07:12 IMPRESSION: Multilevel degenerative changes, as described above. Electronically Signed: Compa Cherry MD at 8:29 EST , Chest X-Ray 09/16/22 07:12 IMPRESSION: No acute abnormality is seen. Electronically Signed: Compa Cherry MD at 8:35 EST , Pelvis X-Ray 09/16/22 07:12 IMPRESSION: Degenerative changes. Electronically Signed: Compa Cherry MD at 8:36 EST , Discharge Plan Triage Chief Complaint: Fall ED Provider: Travon Luciano Dx/Rx/DC Orders Instructions: ED Back Contusion, ED Mechanical Fall, ED Head Injury (Adult), ED Hip Contusion Prescriptions: No Action lisinopril 10 mg tablet 10 mg PO BID acetaminophen 650 mg tablet extended release 650 mg PO Q12H PRN (Reason: Pain) ferrous sulfate 325 mg (65 mg iron) tablet 325 mg PO DAILY ofloxacin 0.3 % drops 1 drp ophthalmic (eye) BID Label Comments: INSTILL 1 DROP INTO LEFTAEYE FOUR TIMES DAILY DX: multivitamin 1 EACH tablet 1 ea PO DAILY Label Comments: SUPPLEMENT metoprolol succinate 50 MG tablet 50 mg PO DAILY Label Comments: BLOOD PRESSURE/HEART omeprazole 20 MG capsule 20 mg PO DAILY Label Comments: ACID REFLUX aspirin 81 MG tablet,chewable 81 mg PO DAILY@0800 Label Comments: HEART HEALTH atorvastatin 40 MG tablet 40 mg PO QHS Qty: 30 0RF Label Comments: CHOLESTEROL apixaban 5 MG tablet 5 mg PO BID Qty: 90 0RF Label Comments: BLOOD THINNER ofloxacin 1 DROP bottle 1 drp LEFT EYE 4X/DAY cholecalciferol (vitamin D3) 2,000 UNIT capsule 4,000 unit PO DAILY insulin lispro 100 UNIT/ML insulin pen See Protocol SQ TIDCM Protocol: 6. Sliding Scale Insulin Custom Condition: 201-250 Dose/Route: 4u Condition: 251-300 Dose/Route: 6u Condition: 301-350 Dose/Route: 8u Condition: 351-400 Dose/Route: 10u Protocol Text: Custom Sliding Scale insulin glargine 100 UNITS/ML insulin pen 40 units SC BID Primary Care Provider: Ava Wilson Referrals: Ava Wilson DO [Primary Care Provider] - Disposition Disposition: Home, Self Care
[2022-09-16 08:01] LABS: Absolute Lymphocyte Count 1.65 X10^3/uL (0.83-4.51); Absolute Neutrophil Count 3.5 X10^3/uL (2.0-7.7); Basophil# 0.03 X10^3/uL; Basophil% 0.5 % (0-1); Eosinophil# 0.18 X10^3/uL; Eosinophils% 3.1 % (0-5); Hematocrit 32.7 % (37-47); Hemoglobin 11.1 g/dL (12.0-15.0); Lymphocyte # 1.65 X10^3/ul (0.83-4.51); Lymphocyte % 28.2 % (19-41); Mean Corp Hgb Conc 33.9 g/dL (32-36); Mean Corpuscular Volume 94.2 fL (81-99); Mean Platelet Vol. 10.2 fl (6.2-12.0); Monocyte# 0.47 X10^3/uL; NRBC Flagged by Analyzer 0 % (0-5); Neutrophil % 59.9 % (47-70); Platelet Count 134 K/mm3 (150-450); RBC Distribution Width CV 12.7 % (11.6-14.6); RBC Distribution Width SD 43.5 fl (35.1-43.9); Red Blood Count 3.47 M/mm3 (4.2-5.4); White Blood Count 5.9 K/mm3 (4.4-11.0)
[2022-09-16 08:14] LABS: Anion Gap 7 (5-15); BUN 45 mg/dL (7-18); BUN/Creat Ratio 26.2 RATIO (10-20); Calcium,Total 9.1 mg/dL (8.5-10.1); Chloride 111 mmol/L (98-107); Creatinine, Serum 1.72 mg/dL (0.55-1.02); EST Glomerular Filtration Rate 31 mL/min (>60); Est Glom Filt Rate - Afr Amer 37 mL/min (>60); Estimated Creatinine Clearance 24.03 ml/min; Glucose 209 mg/dL (74-106); Potassium 5.4 mmol/L (3.5-5.1); Sodium Level 143 mmol/L (136-145)
[2022-09-16 09:18] LABS: Mucous, Urine 0 SEEN /hpf (<or=2+)
[2022-09-16 09:19] LABS: Color, Urine Yellow (Yellow); Glucose, Dipstick Normal (Normal); Ketone-Dipstick Negative (Negative); Leukocyte Esterase-Dipstick 100 /ul (Negative); Nitrite-Dipstick Negative (Negative); Occult Blood-Urine 25 /ul (Negative); Protein-Dipstick Negative (Negative); Urine Bilirubin Dipstick Negative (Negative); Urine Clarity Sl. Cloudy (Clear); Urine Urobilinogen Normal (Normal)
[2022-09-16 09:20] LABS: White Blood Cells 10-25 SEEN /hpf (0-5)
[2022-09-16 09:21] LABS: Bacteria 1+ /hpf (None Seen); Red Blood Cells-Urine 0-5 SEEN /hpf (0-5); Squamous Epithelial Cells - UA 0-5 SEEN /hpf (5-10)
[2022-09-16 10:40] VITALS: BP 158/68; PULSE 76; RESP 14; O2SAT 99
== END 2022-09-16 10:42 | disposition home or self-care (01) ==
PROVIDERS: Emergency Provider Student in an Organized Health Care Education/Training Program; PCP Internal Medicine; Visit Provider Student in an Organized Health Care Education/Training Program
DX: S09.90XA Unspecified injury of head, initial encounter (principal); F03.90 Unspecified dementia, unspecified severity, without behavioral disturbance, psychotic disturbance, mood disturbance, and anxiety; E11.22 Type 2 diabetes mellitus with diabetic chronic kidney disease; Z79.4 Long term (current) use of insulin; N18.30 Chronic kidney disease, stage 3 unspecified; S20.229A Contusion of unspecified back wall of thorax, initial encounter; I12.9 Hypertensive chronic kidney disease with stage 1 through stage 4 chronic kidney disease, or unspecified chronic kidney disease; E66.9 Obesity, unspecified; I25.2 Old myocardial infarction; Z85.3 Personal history of malignant neoplasm of breast; Z86.718 Personal history of other venous thrombosis and embolism; Z86.711 Personal history of pulmonary embolism; Z79.899 Other long term (current) drug therapy; Z79.82 Long term (current) use of aspirin
CPT/HCPCS: 70450; 71045; 72125; 72170; 80048; 81001; 85025; 96360; 96361; 99285; J7040; P9612; A4216